=== PATIENT | male | born 1935 | race Caucasian/White ===

== ENCOUNTER 2016-06-21 04:01 | Emergency (ER) | payer MEDICARE, OTHER ==
[~2016-06-21] VITALS: Ht 182.9 cm; Wt 100.0 kg
[~2016-06-21 04:01] MED LIST: ASPI81 PO; LEVA500T PO; LISI-363 PO; METO25CR PO; PRED50 PO; RIVA20 PO; TIOT18I INH
[2016-06-21 04:03] VITALS: BP 182/89; PULSE 103; RESP 18; TEMP 98.8; O2SAT 96
[2016-06-21 04:49] LABS: AUTOMATED NEUTROPHIL # 4.6 TH/MM3 (1.8-7.7); BASOPHIL % 0.5 % (0.0-2.0); EOSINOPHIL # 0.6 TH/MM3 (0-0.4); EOSINOPHIL % 7.9 % (0.0-4.0); HEMATOCRIT 42.6 % (39.0-51.0); HEMO FLAGS DIFF FINAL; LYMPH % 24.3 % (9.0-44.0); LYMPHOCYTE # 1.9 TH/MM3 (1.0-4.8); MEAN CELL VOLUME 94.8 FL (80.0-100.0); MEAN CORPUSCULAR HGB CONC 33.7 % (32.0-36.0); MONO % 9.2 % (0.0-8.0); NEUT % 58.1 % (16.0-70.0); PLATELET COUNT 184 TH/MM3 (150-450); RED BLOOD COUNT 4.49 MIL/MM3 (4.50-5.90); RED CELL DISTRIBUTION WIDTH 13.5 % (11.6-17.2); WHITE BLOOD COUNT 7.9 TH/MM3 (4.0-11.0)
--- NOTE | 2016-06-21 05:15 | PD ---
HPI Chief Complaint: Bleeding Time Seen by Provider: 04:27 Travel History International Travel<30 days: No Contact w/Intl Traveler<30days: No Traveled to known affect area: No History of Present Illness HPI This is a 80-year-old gentleman whose had previous varicose vein ablations 2 years ago, who presents today after one of his ablated varicose veins started bleeding tonight. He reports that it was bleeding heavily and is unable to stop the bleeding. When [facility] arrived, they found that the bleeding had stopped. He states that he had one on the other foot the did the same thing. He denies any fevers, chills. He states the procedure was done at [facility]. PFSH Past Medical History Hx Anticoagulant Therapy: Yes (XARELTO) Arthritis: Yes (Never been diagnosed) Asthma: No Atrial Fibrillation: Yes Autoimmune Disease: No Blood Disorders: No Anxiety: No Depression: No Heart Rhythm Problems: Yes Cancer: No Cardiac Catheterization: Yes (2011) Cardiovascular Problems: Yes High Cholesterol: Yes Chemotherapy: No Chest Pain: No Congestive Heart Failure: No COPD: Yes Cerebrovascular Accident: No Coronary Artery Disease: Yes (A fib with ablasion) Diabetes: No Endocrine: No Gastrointestinal Disorders: No GERD: No Glaucoma: No Genitourinary: No Hepatitis: No Hiatal Hernia: No Hypertension: Yes Immune Disorder: No Kidney Stones: No Musculoskeletal: Yes (BACK PROBLEM) Neurologic: No Psychiatric: No Reproductive: No Respiratory: Yes Migraines: Yes (Flashing in front of eyes q6 months, prior phenobarbital use) Myocardial Infarction: Yes Radiation Therapy: No Renal Failure: No Seizures: No Sickle Cell Disease: No Sleep Apnea: Yes Thyroid Disease: No Ulcer: No Tetanus Vaccination: Unknown Influenza Vaccination: Yes Past Surgical History Abdominal Surgery: Yes (Gall bladder, appendix - both removed) AICD: No Appendectomy: Yes Arteriovenous Shunt: No Cardiac Surgery: Yes (2 ablations) Cholecystectomy: Yes Ear Surgery: No Endocrine Surgery: No Eye Surgery: Yes (cataracts, both eyes) Genitourinary Surgery: No Gynecologic Surgery: No Insulin Pump: No Joint Replacement: No Oral Surgery: No Pacemaker: No Thoracic Surgery: No Tonsillectomy: Yes Other Surgery: Yes Social History Alcohol Use: Yes (OCC) Tobacco Use: No Substance Use: No Allergies-Medications (Allergen,Severity, Reaction): Coded Allergies: Amiodarone (Verified Allergy, Severe, PALPITATIONS,SOB, 06/21/16) Iodine (Verified Allergy, Severe, SOB, 06/21/16) Shellfish (Verified Allergy, Severe, SOB, 06/21/16) Reported Meds & Prescriptions Reported Meds & Active Scripts Active Deltasone 50 Mg Tab (Prednisone) 50 Mg Tab 50 Mg PO DAILY 5 Days see written script- tapering dose Levaquin 500 Mg Tab (Levofloxacin) 500 Mg Tab 500 Mg PO Q24H Spiriva 18 Mcg Oral Inh (Tiotropium [place]) 18 Mcg Inhp 18 Mcg INH DAILY Reported Metoprolol Succinate ER 25 mg (Metoprolol Succinate) 25 Mg Tab 25 Mg PO DAILY Xarelto 20 Mg Tab (Rivaroxaban) 20 Mg Tab 20 Mg PO DAILY Lisinopril 20 mg (Lisinopril) 20 Mg Tab 1 Tab PO DAILY Aspirin 81 Mg Tab 81 Mg PO DAILY Review of Systems Except as stated in HPI: all other systems reviewed are Neg Musculoskeletal: Positive: Other (bleeding from varicose veins on the left melchor ) Skin: Positive Other (bleeding from varicose vein of the left melchor.) Physical Exam Narrative GENERAL: Well-nourished, well-developed patient. SKIN: Warm and dry. HEAD: Normocephalic/atraumatic. MUSCULOSKELETAL: No cyanosis, or edema. On examination patient's left leg, there was a pressure dressing that the paramedics had placed. There was no active bleeding noted. There was a small eschar from the area that was bleeding that was intact. Data Data Last Documented VS Vital Signs Date Time Temp Pulse Resp B/P Pulse Ox O2 Delivery O2 Flow Rate FiO2 06/21/16 04:03 98.8 103 18 182/89 96 Orders Complete Blood Count With Diff (06/21/16 04:27) Labs Laboratory Tests Test 06/21/16 04:40 White Blood Count 7.9 TH/MM3 Red Blood Count 4.49 MIL/MM3 Hemoglobin 14.3 GM/DL Hematocrit 42.6 % Mean Corpuscular Volume 94.8 FL Mean Corpuscular Hemoglobin 32.0 PG Mean Corpuscular Hemoglobin 33.7 % Concent Red Cell Distribution Width 13.5 % Platelet Count 184 TH/MM3 Mean Platelet Volume 9.1 FL Neutrophils (%) (Auto) 58.1 % Lymphocytes (%) (Auto) 24.3 % Monocytes (%) (Auto) 9.2 % Eosinophils (%) (Auto) 7.9 % Basophils (%) (Auto) 0.5 % Neutrophils # (Auto) 4.6 TH/MM3 Lymphocytes # (Auto) 1.9 TH/MM3 Monocytes # (Auto) 0.7 TH/MM3 Eosinophils # (Auto) 0.6 TH/MM3 Basophils # (Auto) 0.0 TH/MM3 CBC Comment DIFF FINAL Differential Comment MDM Medical Decision Making Medical Screen Exam Complete: Yes Emergency Medical Condition: Yes Differential Diagnosis Uncontrolled varicose vein bleeding versus arterial bleeding versus skin lesion Narrative Course 80-year-old gentleman who presents via [facility] after he had a episode of bleeding from an old varicose vein ablation site. By the time he arrived, the pain was not actively bleeding. He states he had a similar episode on his right lower extremity. His hemoglobin is within normal limits. There is no active bleeding. The site was cleaned and had a fresh mild pressure dressing placed. I've informed him that at this point there is nothing that we need to do. He asked about cautery and I stated that it was not indicated at this time. He is instructed to follow up with the vascular clinic that originally did his venous ablation. Diagnosis Primary Impression: left lower extremity varicose vein bleeding, resolved. Additional Instructions: Keep mild pressure on area for 2 days. Follow up with venous vascular clinic within 1-2 weeks. Disposition: 01 DISCHARGE HOME Condition: Stable Germain Ambriz MD Jun 21, 2016 05:15
== END 2016-06-21 06:10 | disposition home or self-care (01) ==
LOC: NEPE 04:01
DX: I83.892 Varicose veins of left lower extremity with other complications (principal); I48.91 Unspecified atrial fibrillation; E78.00 Pure hypercholesterolemia, unspecified; I10 Essential (primary) hypertension; Z79.01 Long term (current) use of anticoagulants
CPT/HCPCS: 85025; 99283

== ENCOUNTER 2016-12-17 04:51 | Inpatient (IN) | payer OTHER, MEDICARE ==
[2016-12-17] VITALS (11 sets, daily range): BP systolic 115–189; BP diastolic 59–105; PULSE 59–82; RESP 16–28; TEMP 98.5–99.3; O2SAT 94–100
[~2016-12-17] VITALS: Ht 185.4 cm; Wt 100.0 kg
[2016-12-17] MEDS ORDERED: SODIUM CHLORIDE 0.9% FLUSH 10 ML FLUSH IVF PRN (05:00)
--- NOTE | 2016-12-17 05:02 | PD ---
HPI Chief Complaint: Respiratory Distress Time Seen by Provider: 04:58 Travel History International Travel<30 days: No Contact w/Intl Traveler<30days: No Traveled to known affect area: No History of Present Illness HPI Patient is an 81-year-old male presents emergency department via EMS for evaluation of shortness of breath. Patient states he has a history of COPD and awoke with shortness of breath morning but has been short of breath for the past few days. He is also noticed some leg edema over the past few days. Has a history of an ablation by Dr. Spear but he's never had diagnosed congestive heart failure. He states he had an echocardiogram several months ago was negative. EMS gave the patient breathing treatment and placed on BiPAP after the discovered some basilar rales his decreased breath sounds which. After the breathing treatment. He was also noted to be hypertensive in the field and was given a nitroglycerin prior to initiating BiPAP. Patient denies any fevers cough congestion. Denies any chest pain. PFSH Past Medical History Hx Anticoagulant Therapy: Yes (XARELTO) Arthritis: Yes (Never been diagnosed) Asthma: No Atrial Fibrillation: Yes Autoimmune Disease: No Blood Disorders: No Anxiety: No Depression: No Heart Rhythm Problems: Yes Cancer: No Cardiac Catheterization: Yes (2011) Cardiovascular Problems: Yes High Cholesterol: Yes Chemotherapy: No Chest Pain: No Congestive Heart Failure: No COPD: Yes Cerebrovascular Accident: No Coronary Artery Disease: Yes (A fib with ablasion) Diabetes: No Endocrine: No Gastrointestinal Disorders: No GERD: No Glaucoma: No Genitourinary: No Hepatitis: No Hiatal Hernia: No Hypertension: Yes Immune Disorder: No Kidney Stones: No Musculoskeletal: Yes (BACK PROBLEM) Neurologic: No Psychiatric: No Reproductive: No Respiratory: Yes Migraines: Yes (Flashing in front of eyes q6 months, prior phenobarbital use) Myocardial Infarction: Yes Radiation Therapy: No Renal Failure: No Seizures: No Sickle Cell Disease: No Sleep Apnea: Yes Thyroid Disease: No Ulcer: No Past Surgical History Abdominal Surgery: Yes (Gall bladder, appendix - both removed) AICD: No Appendectomy: Yes Arteriovenous Shunt: No Cardiac Surgery: Yes (2 ablations) Cholecystectomy: Yes Ear Surgery: No Endocrine Surgery: No Eye Surgery: Yes (cataracts, both eyes) Genitourinary Surgery: No Gynecologic Surgery: No Insulin Pump: No Joint Replacement: No Oral Surgery: No Pacemaker: No Thoracic Surgery: No Tonsillectomy: Yes Other Surgery: Yes Social History Alcohol Use: Yes (OCC) Tobacco Use: No Substance Use: No Allergies-Medications (Allergen,Severity, Reaction): Coded Allergies: Amiodarone (Verified Allergy, Severe, PALPITATIONS,SOB, 06/21/16) Iodine (Verified Allergy, Severe, SOB, 06/21/16) Shellfish (Verified Allergy, Severe, SOB, 06/21/16) Reported Meds & Prescriptions Reported Meds & Active Scripts Active Reported Rosuvastatin (Rosuvastatin Calcium) 20 Mg Tab 20 Mg PO DAILY Spiriva Handihaler (Tiotropium Inh) 18 Mcg Cap 18 Mcg INH DAILY 1 capsule = 18 mcg Xarelto (Rivaroxaban) 20 Mg Tab 20 Mg PO DAILY Metoprolol Succinate ER 24 HR (Metoprolol Succinate) 25 Mg Tab 25 Mg PO DAILY Lisinopril 20 Mg Tab 20 Mg PO DAILY Aspirin Low Dose (Aspirin) 81 Mg Chew 81 Mg CHEW DAILY Review of Systems Except as stated in HPI: all other systems reviewed are Neg Physical Exam Narrative GENERAL: Well-developed well-nourished in no obvious distress, on CPAP transferred over to BiPAP SKIN: Focused skin assessment warm/dry. HEAD: Atraumatic. Normocephalic. EYES: Pupils equal and round. No scleral icterus. No injection or drainage. ENT: No nasal bleeding or discharge. Mucous membranes pink and moist. NECK: Trachea midline. Mild JVD, patient has some soft tissue neck mass on the right just at the point where the neck meets the shoulder. CARDIOVASCULAR: Regular rate and rhythm. No murmur appreciated. RESPIRATORY: No accessory muscle use. Decreased breath sounds, basilar faint rales. Breath sounds equal bilaterally. No increased work of breathing. GASTROINTESTINAL: Abdomen soft, non-tender, nondistended. Hepatic and splenic margins not palpable. MUSCULOSKELETAL: No obvious deformities. No clubbing. No cyanosis. No edema. NEUROLOGICAL: Awake and alert. No obvious cranial nerve deficits. Motor grossly within normal limits. Normal speech. PSYCHIATRIC: Appropriate mood and affect; insight and judgment normal. Data Data Last Documented VS Vital Signs Date Time Temp Pulse Resp B/P Pulse Ox O2 Delivery O2 Flow Rate FiO2 12/17/16 07:35 98 Nasal Cannula 2.00 12/17/16 07:30 61 16 151/67 12/17/16 06:13 30 12/17/16 04:54 99.3 Orders Electrocardiogram (12/17/16 04:58) B-Type Natriuretic Peptide (12/17/16 04:58) Ckmb (Isoenzyme) Profile (12/17/16 04:58) Complete Blood Count With Diff (12/17/16 04:58) Comprehensive Metabolic Panel (12/17/16 04:58) Magnesium (Mg) (12/17/16 04:58) Prothrombin Time / Inr (Pt) (12/17/16 04:58) Act Partial Throm Time (Ptt) (12/17/16 04:58) Troponin I (12/17/16 04:58) Chest, Single Ap (12/17/16 04:58) Ecg Monitoring (12/17/16 04:58) Iv Access Insert/Monitor (12/17/16 04:58) Oximetry (12/17/16 04:58) Oxygen Administration (12/17/16 04:58) Sodium Chloride 0.9% Flush (Ns Flush) (12/17/16 05:00) Albuterol-Ipratropium Neb (Duoneb Neb) (12/17/16 05:15) Furosemide Inj (Lasix Inj) (12/17/16 05:45) CKMB (12/17/16 05:05) CKMB% (12/17/16 05:05) Azithromycin Inj (Zithromax Inj) (12/17/16 07:15) Ceftriaxone Inj (Rocephin Inj) (12/17/16 07:15) Admit Order (Ed Use Only) (12/17/16 ) Labs Laboratory Tests Test 12/17/16 05:05 White Blood Count 12.9 TH/MM3 Red Blood Count 4.18 MIL/MM3 Hemoglobin 13.1 GM/DL Hematocrit 39.0 % Mean Corpuscular Volume 93.3 FL Mean Corpuscular Hemoglobin 31.3 PG Mean Corpuscular Hemoglobin 33.6 % Concent Red Cell Distribution Width 13.6 % Platelet Count 199 TH/MM3 Mean Platelet Volume 10.1 FL Neutrophils (%) (Auto) 79.9 % Lymphocytes (%) (Auto) 10.9 % Monocytes (%) (Auto) 5.2 % Eosinophils (%) (Auto) 3.3 % Basophils (%) (Auto) 0.7 % Neutrophils # (Auto) 10.3 TH/MM3 Lymphocytes # (Auto) 1.4 TH/MM3 Monocytes # (Auto) 0.7 TH/MM3 Eosinophils # (Auto) 0.4 TH/MM3 Basophils # (Auto) 0.1 TH/MM3 CBC Comment AUTO DIFF Differential Comment AUTO DIFF CONFIRMED Prothrombin Time 17.7 SEC Prothromb Time International 1.6 RATIO Ratio Activated Partial 39.5 SEC Thromboplast Time Sodium Level 140 MEQ/L Potassium Level 4.7 MEQ/L Chloride Level 106 MEQ/L Carbon Dioxide Level 26.6 MEQ/L Anion Gap 7 MEQ/L Blood Urea Nitrogen 19 MG/DL Creatinine 1.23 MG/DL Estimat Glomerular Filtration 57 ML/MIN Rate Random Glucose 111 MG/DL Calcium Level 8.8 MG/DL Magnesium Level 2.0 MG/DL Total Bilirubin 0.7 MG/DL Aspartate Amino Transf 16 U/L (AST/SGOT) Alanine Aminotransferase 22 U/L (ALT/SGPT) Alkaline Phosphatase 74 U/L Total Creatine Kinase 129 U/L Creatine Kinase MB 1.5 NG/ML Troponin I 0.08 NG/ML B-Type Natriuretic Peptide 81 PG/ML Total Protein 7.0 GM/DL Albumin 3.5 GM/DL [facility] Medical Decision Making Medical Screen Exam Complete: Yes Emergency Medical Condition: Yes Interpretation(s) EKG shows sinus rhythm with normal axis normal R-wave progression. No concerning ST segment changes. Intervals within normal limits. This is a normal EKG. Differential Diagnosis CHF, ACS, AMI, COPD exacerbation, pneumonia. Narrative Course Last 24 hours Impressions Chest X-Ray 12/17/16 0458 Signed Impressions: Service Date/Time: Saturday, December 17, 2016 04:56 - CONCLUSION: Mild bilateral lower lung infiltrates, possibly chronic. No focal areas of consolidation. Franklyn Shin MD Patient roomed in emergency department, the etiology of his shortness of breath is not 100% clear. His initial saturation in the field was 190%. Doing well after being weaned off her BiPAP on nasal cannula. Troponin is mildly elevated at 0.08, his EKG was nonischemic. BNP is negative. Chest x-ray above somewhat suggest an infectious etiology however he does have symptomology to support it. We'll start him on some antibiotics she was given some Lasix and recommended admission to the hospital with her workup and he is agreeable. Diagnosis Primary Impression: SOB (shortness of breath) Additional Impression: CHF (congestive heart failure) Admitting Information Admitting Physician Requests: Observation Condition: Stable Hair Singh MD Dec 17, 2016 05:02
[2016-12-17] MEDS ORDERED: XARE20TA PO (05:11)
[2016-12-17] MEDS ORDERED: LISI-515 PO (05:11)
[2016-12-17] MEDS ORDERED: ROSU1TAB8 PO (05:11)
[2016-12-17] MEDS ORDERED: SPIRCAP INH (05:11)
[2016-12-17] MEDS ORDERED: ASPI81CH37 CHEW (05:11)
[2016-12-17] MEDS ORDERED: METO25TA6 PO (05:11)
[2016-12-17] MEDS ORDERED: RESP: ALBUTEROL 2.5 MG/IPRATROPIUM 0.5 MG NEB (SCH) NEB ONE (05:15)
--- NOTE | 2016-12-17 05:17 | RADRPT ---
EXAM DATE/TIME: 12/17/2016 04:56 [facility] COMPARISON: CHEST SINGLE AP, December 19, 2014, 5:08. INDICATIONS : Short of breath. MEDICAL HISTORY : Chronic obstructive pulmonary disease. SURGICAL HISTORY : None. ENCOUNTER: Initial ACUITY: 1 day PAIN SCORE: 0/10 LOCATION: Bilateral chest FINDINGS: There are mild airspace opacities in the mid and lower lungs bilaterally, right greater than left, wi thout consolidation, similar appearance to a prior chest x-ray in 2014. The heart is normal size. B oth hemidiaphragms are fairly well delineated. CONCLUSION: Mild bilateral lower lung infiltrates, possibly chronic. No focal areas of consolidation. Franklyn Shin MD on December 17, 2016 at 5:14 Board Certified Radiologist. This report was verified electronically.
[2016-12-17 05:35] LABS: ALT (GPT) 22 U/L (12-78); ANION GAP 7 MEQ/L (5-15); AST (GOT) 16 U/L (15-37); BICARBONATE 26.6 MEQ/L (21.0-32.0); BLOOD UREA NITROGEN 19 MG/DL (7-18); CHLORIDE 106 MEQ/L (98-107); GLOMERULAR FILTRATION RATE 57 ML/MIN (>89); POTASSIUM 4.7 MEQ/L (3.5-5.1); SODIUM (NA) 140 MEQ/L (136-145)
[2016-12-17 05:40] LABS: ALKALINE PHOSPHATASE 74 U/L (45-117); AUTOMATED NEUTROPHIL # 10.3 TH/MM3 (1.8-7.7); BASOPHIL # 0.1 TH/MM3 (0-0.2); BASOPHIL % 0.7 % (0.0-2.0); CREATINE KINASE 129 U/L (39-308); EOSINOPHIL # 0.4 TH/MM3 (0-0.4); EOSINOPHIL % 3.3 % (0.0-4.0); LYMPH % 10.9 % (9.0-44.0); LYMPHOCYTE # 1.4 TH/MM3 (1.0-4.8); MEAN CELL VOLUME 93.3 FL (80.0-100.0); MEAN CORPUSCULAR HEMOGLOBIN 31.3 PG (27.0-34.0); MEAN CORPUSCULAR HGB CONC 33.6 % (32.0-36.0); MONO % 5.2 % (0.0-8.0); NEUT % 79.9 % (16.0-70.0); PLATELET COUNT 199 TH/MM3 (150-450); RED BLOOD COUNT 4.18 MIL/MM3 (4.50-5.90); RED CELL DISTRIBUTION WIDTH 13.6 % (11.6-17.2); TOTAL BILIRUBIN ADULT 0.7 MG/DL (0.2-1.0); WHITE BLOOD COUNT 12.9 TH/MM3 (4.0-11.0)
[2016-12-17 05:41] LABS: APTT (PATIENT) 39.5 SEC (24.3-30.1); INTERNATIONAL NORMALIZED RATIO 1.6 RATIO; PROTHROMBIN TIME - PATIENT 17.7 SEC (9.8-11.6)
[2016-12-17 05:45] LABS: HEMO FLAGS AUTO DIFF
[2016-12-17] MEDS ORDERED: FUROSEMIDE 40 MG/4 ML VIAL IV PUSH ONE (05:45)
[2016-12-17 05:52] LABS: CKMB 1.5 NG/ML (0.5-3.6)
[2016-12-17 06:08] LABS: SCAN/DIFF AUTO DIFF CONFIRMED
[2016-12-17] MEDS ORDERED: AZITHROMYCIN INJ 500 MG in SODIUM CHLOR 0.9% 250 ML INJ 250 ML IV ONE (07:15)
[2016-12-17] MEDS ORDERED: cefTRIAXone INJ 1,000 MG in SODIUM CHLORIDE 0.9% INJ 100 ML IV ONE (07:15)
[2016-12-17] MEDS ORDERED: ACETAMINOPHEN 325 MG TAB PO PRN (08:00)
[2016-12-17] MEDS ORDERED: MAGNESIUM HYDROXIDE SUSP 30 ML CUP PO PRN (08:00)
[2016-12-17] MEDS ORDERED: ONDANSETRON HCL 4 MG/2 ML VIAL IVP PRN (08:00)
[2016-12-17] MEDS ORDERED: HEPARIN SODIUM - SQ 10,000 UNITS/ML VIAL SQ SCH (08:00)
[2016-12-17] MEDS ORDERED: SODIUM CHLORIDE 0.9% FLUSH 10 ML FLUSH IV FLUSH PRN (08:00)
[2016-12-17] MEDS ORDERED: BISACODYL 10 MG SUPP RECTAL PRN (08:00)
[2016-12-17] MEDS ORDERED: LACTULOSE SYRUP 20 GM/30 ML CUP PO PRN (08:00)
[2016-12-17] MEDS ORDERED: SENNOSIDES 8.6 MG TAB PO PRN (08:00)
[2016-12-17] MEDS ORDERED: NALOXONE HCL 0.4 MG/ML AMP IV PRN (08:00)
[2016-12-17] MEDS: SODIUM CHLORIDE 0.9% FLUSH 10 ML FLUSH IV FLUSH SCH ×2 (09:51→21:00)
[2016-12-17] MEDS: DOCUSATE SODIUM 50 MG/SENNA 8.6 MG TAB PO SCH ×2 (09:51→21:00)
--- NOTE | 2016-12-17 14:11 | HHI.HP ---
HPI Service [facility] Primary Care Physician Unknown Admission Diagnosis CHF, PNA, Hypoxia. Diagnoses: Chief Complaint: shortness of breath Travel History International Travel<30 Days: No Contact w/Intl Traveler <30 Da: No Traveled to Known Affected Are: No Sepsis Criteria SIRS Criteria (2 or more): RR > 20 or PaCO2 < 32, WBC > 42598, < 4000 or > 10 % bands Sepsis Criteria (SIRS+source): Infect source susp/known Criteria Outcome: Meets sepsis criteria History of Present Illness Written by Trina Joaquin, acting as scribe for Dr. Liz on 12/17/16 at 14:24. This note was transcribed by scribe FRANCK Rodriguez. I, Dr. Karl Liz personally performed the history, physical exam, and medical decision making; and confirmed the accuracy of the information in the transcribed note. Authenticated by Dr. Karl Liz on 12/17/16 at 17:15. 81-year-old male with history of COPD, atrial fibrillation s/p ablation, on Xarelto, hypertension, hyperlipidemia, mild aortic stenosis, presents with a 3 day history of shortness of breath. He denies any cough or fevers/chills. He's noticed the shortness of breath worse at night with associated orthopnea. Dyspnea also worse with exertion, relieved by sitting upright in chair. He has noticed some mild edema around the ankles. He denies any chest pain or palpitations. He does complain of some back pain which is chronic for him. Denies any other medical complaints at this time including no abdominal pain, nausea/vomiting, diarrhea, constipation, or dysuria. His first calender worker is Dr. Spear. He believes it's been over a year since his last echocardiogram. Review of Systems Except as stated in HPI: all other systems reviewed are Neg Past Family Social History Past Medical History COPD atrial fibrillation s/p ablation x2, on Xarelto hypertension hyperlipidemia JUAN, intolerant to CPAP Diet controlled pre-diabetes Mild aortic stenosis Past Surgical History EP study with ablation 2 Appendectomy Tonsillectomy Cholecystectomy Back surgery Reported Medications Rosuvastatin (Rosuvastatin Calcium) 20 Mg Tab 20 Mg PO DAILY Spiriva Handihaler (Tiotropium Inh) 18 Mcg Cap 18 Mcg INH DAILY 1 capsule = 18 mcg Xarelto (Rivaroxaban) 20 Mg Tab 20 Mg PO DAILY Metoprolol Succinate ER 24 HR (Metoprolol Succinate) 25 Mg Tab 25 Mg PO DAILY Lisinopril 20 Mg Tab 20 Mg PO DAILY Aspirin Low Dose (Aspirin) 81 Mg Chew 81 Mg CHEW DAILY Allergies: Coded Allergies: Amiodarone (Verified Allergy, Severe, PALPITATIONS,SOB, 06/21/16) Iodine (Verified Allergy, Severe, SOB, 06/21/16) Shellfish (Verified Allergy, Severe, SOB, 06/21/16) Active Ordered Medications Current Medications Medications (Trade) Dose Ordered Sig/Daryl Route Start Time Stop Time Status Last Admin (NS Flush) 2 ml UNSCH PRN IV FLUSH 12/17/16 08:00 (NS Flush) 2 ml BID IV FLUSH 12/17/16 09:00 12/17/16 09:51 (Tylenol) 650 mg Q4H PRN PO 12/17/16 08:00 (Zofran Inj) 4 mg Q6H PRN IVP 12/17/16 08:00 (Heparin Inj) 5,000 units Q12H SQ 12/17/16 08:00 12/17/16 08:16 (Narcan Inj) 0.4 mg UNSCH PRN IV 12/17/16 08:00 (Zarina-Colace) 1 tab BID PO 12/17/16 09:00 12/17/16 09:51 (Milk Of Magnesia Liq) 30 ml Q12H PRN PO 12/17/16 08:00 (Senokot) 17.2 mg Q12H PRN PO 12/17/16 08:00 (Dulcolax Supp) 10 mg DAILY PRN RECTAL 12/17/16 08:00 (Lactulose Liq) 30 ml DAILY PRN PO 12/17/16 08:00 Family History Father with colon cancer age 61, then lived to age 91 Uncle with prostate cancer Cousin with unknown cancer Social History Prior tobacco use, quit in 1970 Occasional alcohol use, drinks mostly beer 1-2 daily Denies any illicit drug use Works at [employer] Physical Exam Vital Signs Vital Signs Date Time Temp Pulse Resp B/P Pulse Ox O2 Delivery O2 Flow Rate FiO2 12/17/16 11:06 98.5 64 16 148/70 99 12/17/16 07:35 98 Nasal Cannula 2.00 12/17/16 07:30 61 16 151/67 98 Room Air 12/17/16 07:30 61 18 151/67 98 Nasal Cannula 2 12/17/16 06:37 96 Nasal Cannula 2.00 12/17/16 06:13 59 18 115/59 99 BiPAP 11 30 12/17/16 05:06 99 BiPAP 11 30 12/17/16 04:58 99 30 12/17/16 04:54 99.3 79 28 189/105 99 Physical Exam GENERAL: Well-nourished, well-developed pleasant elderly male patient in NAD. SKIN: Warm and dry. HEAD: Normocephalic. Atraumatic. EYES: Pupils equal and round. No scleral icterus. No injection or drainage. ENT: No nasal bleeding or discharge. Mucous membranes pink and moist. NECK: Supple. Trachea midline. CARDIOVASCULAR: Regular rate and rhythm. S1, S2 noted. No murmur appreciated. RESPIRATORY: No accessory muscle use. Clear to auscultation. Breath sounds equal bilaterally. GASTROINTESTINAL: Abdomen soft, non-tender, nondistended. Normoactive bowel sounds x4. MUSCULOSKELETAL: No obvious deformities. Trace b/l lower extremity edema. NEUROLOGICAL: Awake and alert. No obvious cranial nerve deficits. Motor grossly within normal limits. Normal speech. PSYCHIATRIC: Appropriate mood and affect; insight and judgment normal. Laboratory Laboratory Tests Test 12/17/16 05:05 White Blood Count 12.9 Red Blood Count 4.18 Hemoglobin 13.1 Hematocrit 39.0 Mean Corpuscular Volume 93.3 Mean Corpuscular Hemoglobin 31.3 Mean Corpuscular Hemoglobin 33.6 Concent Red Cell Distribution Width 13.6 Platelet Count 199 Mean Platelet Volume 10.1 Neutrophils (%) (Auto) 79.9 Lymphocytes (%) (Auto) 10.9 Monocytes (%) (Auto) 5.2 Eosinophils (%) (Auto) 3.3 Basophils (%) (Auto) 0.7 Neutrophils # (Auto) 10.3 Lymphocytes # (Auto) 1.4 Monocytes # (Auto) 0.7 Eosinophils # (Auto) 0.4 Basophils # (Auto) 0.1 CBC Comment AUTO DIFF Differential Comment AUTO DIFF CONFIRMED Prothrombin Time 17.7 Prothromb Time International 1.6 Ratio Activated Partial 39.5 Thromboplast Time Sodium Level 140 Potassium Level 4.7 Chloride Level 106 Carbon Dioxide Level 26.6 Anion Gap 7 Blood Urea Nitrogen 19 Creatinine 1.23 Estimat Glomerular Filtration 57 Rate Random Glucose 111 Calcium Level 8.8 Magnesium Level 2.0 Total Bilirubin 0.7 Aspartate Amino Transf 16 (AST/SGOT) Alanine Aminotransferase 22 (ALT/SGPT) Alkaline Phosphatase 74 Total Creatine Kinase 129 Creatine Kinase MB 1.5 Troponin I 0.08 B-Type Natriuretic Peptide 81 Total Protein 7.0 Albumin 3.5 Result Diagram: 12/17/16 0505 12/17/16 0505 Imaging Last Impressions Chest X-Ray 12/17/16 0458 Signed Impressions: Service Date/Time: Saturday, December 17, 2016 04:56 - CONCLUSION: Mild bilateral lower lung infiltrates, possibly chronic. No focal areas of consolidation. Franklyn Shin MD Assessment and Plan Problem List: (1) SOB (shortness of breath) ICD Code: R06.02 Status: Acute (2) Pneumonia ICD Code: J18.9 Status: Acute (3) Acute exacerbation of CHF (congestive heart failure) ICD Code: I50.9 Status: Acute Assessment and Plan 81-year-old male with history of COPD, atrial fibrillation s/p ablation, on Xarelto, hypertension, hyperlipidemia, presents with a 2-3 day history of shortness of breath. Dyspnea, Acute Respiratory Distress: unclear etiology, possibly multifactorial with developing pneumonia and mild acute CHF exacerbation. RR 28 upon arrival, s /p Bipap, duonebs, and IV Lasix 40mg x1. CXR images reviewed, shows mild bilateral lower lung infiltrates, possibly chronic, no focal areas of consolidation. BNP 81. Doubt PE while on Xarelto. -continue diuresis for possible CHF exacerbation -continue antibiotics for pneumonia -duonebs prn -incentive spirometry -continue O2 as needed Possible CHF Exacerbation: Prior Echo 12/20/14 with mild LVH, vigorous systolic function EF 65-70%, mild , mild MR, mild TR; however Echo 06/17/12 with EF 30- 35%. -check repeat echocardiogram -continue diuresis with torsemide 10mg bid -monitor Is&Os -fluid/sodium restrictions Sepsis with Community Acquired Pneumonia: CXR with bilateral lower lung infiltrates. Meets sepsis criteria with leukocytosis WBC 12.9K and tachypnea RR 28, with source pneumonia. -Continue antibiotics with IV Levaquin -monitor CBC Elevated Troponin: no complaints of chest pain. Troponin 0.08. EKG with no acute ischemic changes. Possibly related to renal insufficiency. -Continue to rule out ACS with serial cardiac enzymes/EKGs. -Monitor on telemetry. -Continue patient's aspirin, statin, BB, ACEi Hypertension/Hyperlipidemia: chronic -continue patient's metoprolol, lisinopril, and statin Atrial Fibrillation: EKG with sinus rhythm -continue patient's BB and Xarelto -monitor on telemetry DVT Prophylaxis: on Xarelto Discussed Condition With Patient, ER Trina Zafar PA-C Dec 17, 2016 14:11 Cristina Liz DO Dec 17, 2016 17:16
[2016-12-17] MEDS ORDERED: RESP: ALBUTEROL 2.5 MG/IPRATROPIUM 0.5 MG NEB (PRN) NEB (15:30)
[2016-12-17 15:55] LABS: CREATINE KINASE 106 U/L (39-308)
[2016-12-17 16:08] LABS: CKMB 1.2 NG/ML (0.5-3.6)
--- NOTE | 2016-12-17 16:54 | EKG ---
Date Performed: 12/17/2016 Time Performed: 05:03:24 PTAGE: 81 years EKG: Sinus rhythm NORMAL ECG PREVIOUS TRACING : 12/19/2014 05.02 Compared to prior tracing no significant change DOCTOR: Julio Cesar Ac Interpretating Date/Time 12/17/2016 16:52:39
[2016-12-17] MEDS: TORSEMIDE 5 MG TAB PO SCH (18:35)
--- NOTE | 2016-12-17 19:27 | ECHRPT ---
Indication: Shortness of breath CONCLUSIONS Mild concentric left ventricular hypertrophy. The left ventricular systolic function is normal with an estimated ejection fraction in the range of 60-65%. No regional wall motion abnormalities are present. Mild mitral annular calcification. Moderate thickening of the aortic valve leaflets. Trace aortic valve regurgitation. Mild aortic valve stenosis. There is trace tricuspid valve regurgitation. The estimated pulmonary arterial pressure is 25 mmHg. BP: 148 / 70 HR: 64 Rhythm: Sinus MEASUREMENTS (Male / Female) Normal Values Technical Quality:Fair 2D ECHO LV Diastolic Diameter PLAX 5.1 cm 4.2 - 5.9 / 3.9 - 5.3 cm LV Systolic Diameter PLAX 3.4 cm IVS Diastolic Thickness 1.3 cm 0.6 - 1.0 / 0.6 - 0.9 cm LVPW Diastolic Thickness 1.3 cm 0.6 - 1.0 / 0.6 - 0.9 cm LV Relative Wall Thickness 0.5 RV Internal Dim ED PLAX 2.6 cm LVOT Diameter 2.0 cm M-MODE Aortic Root Diameter MM 3.3 cm AV Cusp Separation MM 1.0 cm DOPPLER AV Peak Velocity 288.0 cm/s AV Peak Gradient 33.2 mmHg AV Mean Gradient 18.0 mmHg AV Velocity Time Integral 61.8 cm LVOT Peak Velocity 118.0 cm/s LVOT Peak Gradient 5.6 mmHg LVOT Velocity Time Integral 25.6 cm LVOT Cardiac Index 2251.1 cm/minm AV Area Cont Eq vti 1.3 cm AV Area Cont Eq pk 1.3 cm MV Area PHT 3.5 cm Mitral E Point Velocity 99.7 cm/s LV E' Lateral Velocity 8.3 cm/s Mitral E to LV E' Lateral Ratio 12.0 LV E' Septal Velocity 5.9 cm/s Mitral E to LV E' Septal Ratio 17.0 TV Peak Velocity 252.0 cm/s PV Peak Velocity 130.0 cm/s PV Peak Gradient 6.8 mmHg FINDINGS LEFT VENTRICLE Mild concentric left ventricular hypertrophy. No regional wall motion abnormalities are present. RIGHT VENTRICLE Normal right ventricular size and systolic function. LEFT ATRIUM The left atrial size is normal. RIGHT ATRIUM The right atrial size is normal. ATRIAL SEPTUM Normal atrial septal thickness without atrial level shunting by limited color doppler interrogation. AORTA The aortic root and proximal ascending aorta are normal in size on limited imaging. MITRAL VALVE Mild mitral annular calcification. No mitral valve regurgitation. AORTIC VALVE Moderate thickening of the aortic valve leaflets. Trace aortic valve regurgitation. Mild aortic valve stenosis. TRICUSPID VALVE There is trace tricuspid valve regurgitation. The estimated pulmonary arterial pressure is 25 mmHg. PULMONARY VALVE The pulmonary valve is not well visualized. VESSELS The inferior vena cava is normal in size. PERICARDIUM No pericardial effusion. Radha Milton MD, FACC (Electronically Signed) Final Date:17 December 2016 19:27
[2016-12-17 22:04] LABS: CREATINE KINASE 111 U/L (39-308)
[2016-12-17 22:17] LABS: CKMB 0.6 NG/ML (0.5-3.6)
[2016-12-18] VITALS (8 sets, daily range): BP systolic 117–152; BP diastolic 55–66; PULSE 53–101; RESP 16–18; TEMP 98.1–98.8; O2SAT 94–97
--- NOTE | 2016-12-18 05:06 | EKG ---
Date Performed: 12/17/2016 Time Performed: 21:02:33 PTAGE: 81 years EKG: Sinus rhythm possible SEPTAL MYOCARDIAL INFARCTION ABNORMAL ECG Compared to the PREVIOUS TRACING Possible septal AL is present but this could be due to lead placement john hanks. PREVIOUS TRACIN12/17/2016 05.03 DOCTOR: Alxe Max Interpretating Date/Time 12/18/2016 05:04:25
[2016-12-18] MEDS: TORSEMIDE 5 MG TAB PO SCH ×2 (09:31→18:28)
[2016-12-18] MEDS: ASPIRIN 81 MG CHEW TAB CHEW SCH (09:31)
[2016-12-18] MEDS: DOCUSATE SODIUM 50 MG/SENNA 8.6 MG TAB PO SCH ×2 (09:31→20:00)
[2016-12-18] MEDS: ATORVASTATIN 40 MG TAB PO SCH (09:31)
[2016-12-18] MEDS: RIVAROXABAN 20 MG TAB PO SCH (09:31)
[2016-12-18] MEDS: LISINOPRIL 20 MG TAB PO SCH (09:31)
[2016-12-18] MEDS: METOPROLOL SUCCINATE 25 MG EXTENDED RELEASE TAB PO SCH (09:31)
[2016-12-18] MEDS: SODIUM CHLORIDE 0.9% FLUSH 10 ML FLUSH IV FLUSH SCH ×2 (09:32→20:00)
[2016-12-18] MEDS: LEVOFLOXACIN 750 MG PREMIX INJ 150 ML IV SCH (09:32)
--- NOTE | 2016-12-18 10:30 | HHI.PR ---
Subjective Remarks Follow up for dyspnea, pneumonia. The patient reports feeling better today. He states last night he had an episode after lying down where he felt short of breath, unable to take a deep breath, and he believes he had some wheezing at that time. He was given a duoneb treatment and used incentive spirometer, and the symptoms resolved shortly after. He continues to deny any chest pain or palpitations. He has minimal nonproductive cough. Denies fevers/chills. He is requiring 2L NC with O2 sat 97%. He does not wear oxygen at home. He has a nebulizer machine at home but his neb solution is over a few years old, requesting new prescription. He has no other medical complaints at this time. Discussed abnormal cardiac enzymes with the patient. Upon further discussion, he does endorse a tightness in his chest and dyspnea with minimal exertion, relieved by rest. He states it's been multiple years since he's had any stress test. He's never had stents or bypass. He agrees to nuclear stress test. Objective Vitals Vital Signs Date Time Temp Pulse Resp B/P Pulse Ox O2 Delivery O2 Flow Rate FiO2 12/18/16 07:44 98.5 84 16 152/66 97 12/18/16 07:16 86 12/18/16 04:45 98.8 67 18 133/66 97 12/18/16 00:05 98.7 74 18 121/58 97 12/17/16 22:00 74 12/17/16 21:37 94 Nasal Cannula 2.00 12/17/16 19:56 98.6 82 18 141/66 100 12/17/16 17:33 99.1 68 16 135/64 98 12/17/16 11:06 98.5 64 16 148/70 99 I/O 12/17/16 12/17/16 12/17/16 12/18/16 12/18/16 12/18/16 06:59 14:59 22:59 06:59 14:59 22:59 Intake Total 460 ml 480 ml Output Total 750 ml 600 ml Balance -750 ml 460 ml -120 ml Intake Oral 460 ml 480 ml Output Urine Total 750 ml 600 ml # Voids 3 2 # Bowel Movements 0 Result Diagram: 12/17/16 0505 12/17/16 0506 Imaging Last Impressions Chest X-Ray 12/17/16 3254 Signed Impressions: Service Date/Time: Saturday, December 17, 2016 04:56 - CONCLUSION: Mild bilateral lower lung infiltrates, possibly chronic. No focal areas of consolidation. Franklyn Shin MD Objective Remarks GENERAL: Well-nourished, well-developed pleasant elderly male patient in [facility]. SKIN: Warm and dry. No rash. HEENT: Normocephalic. Atraumatic. Pupils equal and round. Mucous membranes pink and moist. CARDIOVASCULAR: Regular rate and rhythm. S1, S2 noted. No murmur appreciated. RESPIRATORY: No accessory muscle use. Breath sounds slightly diminished at bilateral bases, otherwise clear to auscultation. Breath sounds equal bilaterally. GASTROINTESTINAL: Abdomen soft, non-tender, nondistended. Normoactive bowel sounds x4. MUSCULOSKELETAL: No obvious deformities. Very trace BLE edema around the ankles. Calves nontender/nonedematous. NEUROLOGICAL: Awake and alert. No obvious cranial nerve deficits. Motor grossly within normal limits. Normal speech. PSYCHIATRIC: Appropriate mood and affect; insight and judgment normal. Medications and IVs Current Medications Medications (Trade) Dose Ordered Sig/Daryl Route Start Time Stop Time Status Last Admin (NS Flush) 2 ml UNSCH PRN IV FLUSH 12/17/16 08:00 (NS Flush) 2 ml BID IV FLUSH 12/17/16 09:00 12/18/16 09:32 (Tylenol) 650 mg Q4H PRN PO 12/17/16 08:00 (Zofran Inj) 4 mg Q6H PRN IVP 12/17/16 08:00 (Narcan Inj) 0.4 mg UNSCH PRN IV 12/17/16 08:00 (Zarina-Colace) 1 tab BID PO 12/17/16 09:00 12/18/16 09:31 (Milk Of Magnesia Liq) 30 ml Q12H PRN PO 12/17/16 08:00 (Senokot) 17.2 mg Q12H PRN PO 12/17/16 08:00 (Dulcolax Supp) 10 mg DAILY PRN RECTAL 12/17/16 08:00 (Lactulose Liq) 30 ml DAILY PRN PO 12/17/16 08:00 (Aspirin Chew) 81 mg DAILY CHEW 12/18/16 09:00 8/15/17 09:31 (Prinivil) 20 mg DAILY PO 12/18/16 09:00 12/18/16 09:31 (Toprol Xl) 25 mg DAILY PO 12/18/16 09:00 12/18/16 09:31 (Xarelto) 20 mg DAILY PO 12/18/16 09:00 12/18/16 09:31 Atorvastatin Calcium 40 mg 40 mg DAILY PO 12/18/16 09:00 12/18/16 09:31 (Levaquin 750 Mg Premix Inj) 150 ml @ 100 mls/hr Q24H IV 12/18/16 09:00 12/18/16 09:32 (Demadex) 10 mg BID@09,18 PO 12/17/16 18:00 12/18/16 09:31 A/P Problem List: (1) SOB (shortness of breath) ICD Code: R06.02 Status: Acute (2) Pneumonia ICD Code: J18.9 Status: Acute (3) Acute exacerbation of CHF (congestive heart failure) ICD Code: I50.9 Status: Acute Assessment and Plan 81-year-old male with history of COPD, atrial fibrillation s/p ablation, on Xarelto, hypertension, hyperlipidemia, presents with a 2-3 day history of shortness of breath. Dyspnea, Acute Respiratory Distress: unclear etiology, possibly multifactorial with developing pneumonia and COPD exacerbation, rule out CHF. RR 28 upon arrival, s/p Bipap, duonebs, and IV Lasix 40mg x1. CXR images reviewed, shows mild bilateral lower lung infiltrates, possibly chronic, no focal areas of consolidation. BNP 81. Doubt PE while on Xarelto. -continue diuresis for possible CHF exacerbation -continue antibiotics for pneumonia -duonebs prn -incentive spirometry -continue O2 as needed -check home O2 walk test Sepsis with Community Acquired Pneumonia: CXR with bilateral lower lung infiltrates. Meets sepsis criteria with leukocytosis WBC 12.9K and tachypnea RR 28, with source pneumonia. -Continue antibiotics with IV Levaquin -monitor CBC, results pending COPD Exacerbation: mild, dyspnea relieved by duonebs, patient reports subjective wheezing overnight -start on prednisone 40mg daily -continue duonebs q8h and q4h prnPossible Mild CHF Exacerbation: Prior Echo with mild LVH, vigorous systolic function EF 65-70%, mild , mild MR, mild TR; however Echo 06/17/12 with EF 30-35%. -repeat echocardiogram 12/17 with normal systolic function EF 60-65% -continue diuresis with torsemide 10mg bid -monitor Is&Os -fluid/sodium restrictions Elevated Troponin: no complaints of chest pain. Troponin 0.08. EKG show NSR with no acute ischemic changes. Suspect related to renal insufficiency/CHF. -serial troponins flat, however 2nd EKG with possible septal myocardial infarction. -Monitor on telemetry. -Continue patient's aspirin, statin, BB, ACEi -check nuclear stress test tomorrow (unable to be done today due to patient having coffee) Hypertension/Hyperlipidemia: chronic -continue patient's metoprolol, lisinopril, and statin Atrial Fibrillation: EKG with sinus rhythm -continue patient's BB and Xarelto -monitor on telemetry DVT Prophylaxis: on Xarelto Discharge Planning Likely discharge tomorrow after nuclear stress test. Trina Joaquin PA-C Dec 18, 2016 10:30 am
[2016-12-18] MEDS: RESP: ALBUTEROL 2.5 MG/IPRATROPIUM 0.5 MG NEB (SCH) NEB ×2 (11:41→20:27)
[2016-12-18] MEDS: predniSONE 20 MG TAB PO SCH (12:10)
[2016-12-18 12:20] LABS: AUTOMATED NEUTROPHIL # 5.7 TH/MM3 (1.8-7.7); BASOPHIL % 0.4 % (0.0-2.0); EOSINOPHIL # 0.5 TH/MM3 (0-0.4); EOSINOPHIL % 5.4 % (0.0-4.0); HEMATOCRIT 36.9 % (39.0-51.0); HEMO FLAGS DIFF FINAL; LYMPHOCYTE # 1.7 TH/MM3 (1.0-4.8); MEAN CELL VOLUME 92.9 FL (80.0-100.0); MEAN CORPUSCULAR HEMOGLOBIN 31.8 PG (27.0-34.0); MEAN CORPUSCULAR HGB CONC 34.2 % (32.0-36.0); MONO % 7.5 % (0.0-8.0); NEUT % 66.7 % (16.0-70.0); PLATELET COUNT 176 TH/MM3 (150-450); RED BLOOD COUNT 3.97 MIL/MM3 (4.50-5.90); RED CELL DISTRIBUTION WIDTH 13.3 % (11.6-17.2); WHITE BLOOD COUNT 8.5 TH/MM3 (4.0-11.0)
[2016-12-18 13:08] LABS: BICARBONATE 31.1 MEQ/L (21.0-32.0); POTASSIUM 3.9 MEQ/L (3.5-5.1)
[2016-12-19] VITALS (9 sets, daily range): BP systolic 94–137; BP diastolic 42–65; PULSE 79–97; RESP 18–20; TEMP 97.3–98.6; O2SAT 92–98
[2016-12-19] MEDS: RESP: ALBUTEROL 2.5 MG/IPRATROPIUM 0.5 MG NEB (SCH) NEB ×3 (02:55→20:10)
[2016-12-19] MEDS: LEVOFLOXACIN 750 MG PREMIX INJ 150 ML IV SCH (08:24)
[2016-12-19] MEDS: SODIUM CHLORIDE 0.9% FLUSH 10 ML FLUSH IV FLUSH SCH ×2 (08:25→20:43)
[2016-12-19] MEDS: ASPIRIN 81 MG CHEW TAB CHEW SCH (08:25)
[2016-12-19] MEDS: DOCUSATE SODIUM 50 MG/SENNA 8.6 MG TAB PO SCH ×2 (08:25→20:44)
[2016-12-19] MEDS: predniSONE 20 MG TAB PO SCH (08:25)
[2016-12-19] MEDS: RIVAROXABAN 20 MG TAB PO SCH (08:26)
[2016-12-19] MEDS: TORSEMIDE 5 MG TAB PO SCH ×2 (08:26→17:01)
[2016-12-19] MEDS: LISINOPRIL 20 MG TAB PO SCH (08:26)
[2016-12-19] MEDS: ATORVASTATIN 40 MG TAB PO SCH (08:26)
[2016-12-19] MEDS: METOPROLOL SUCCINATE 25 MG EXTENDED RELEASE TAB PO SCH (09:00)
[2016-12-19] MEDS ORDERED: REGADENOSON INJ 0.4 MG/5 ML SYR ONE (09:23)
--- NOTE | 2016-12-19 10:05 | HHI.PR ---
Subjective Remarks Follow up for dyspnea, pneumonia, COPD. The patient reports feeling much better again today. He only reports minimal shortness of breath however states he's now able to take a much deeper breath and ambulate his room without difficulty. His O2 sat has been stable on room air. Reports very minimal nonproductive cough. Denies fevers/chills. Denies any specific chest pains. He has no other medical complaints at this time. He feels ready for discharge. Going for nuclear stress test today. Objective Vitals Vital Signs Date Time Temp Pulse Resp B/P Pulse Ox O2 Delivery O2 Flow Rate FiO2 12/19/16 07:24 97.9 79 18 137/65 95 12/19/16 04:52 98.6 81 18 94/42 98 12/19/16 00:53 98.2 97 18 122/56 95 12/18/16 21:09 98.1 99 18 117/55 94 12/18/16 20:28 21 12/18/16 19:47 101 12/18/16 15:10 12/18/16 11:37 98.4 53 16 128/65 94 12/18/16 11:00 96 21 I/O 12/18/16 12/18/16 12/18/16 12/19/16 12/19/16 12/19/16 06:59 14:59 22:59 06:59 14:59 22:59 Intake Total 480 ml Output Total 600 ml Balance -120 ml Intake Oral 480 ml Output Urine Total 600 ml # Voids 2 1 # Bowel Movements 0 Result Diagram: 12/18/16 1205 12/18/16 1205 Imaging Last Impressions Chest X-Ray 12/17/16 0458 Signed Impressions: Service Date/Time: Saturday, December 17, 2016 04:56 - CONCLUSION: Mild bilateral lower lung infiltrates, possibly chronic. No focal areas of consolidation. Franklyn Shin MD Objective Remarks GENERAL: Well-nourished, well-developed pleasant elderly male patient in [facility]. SKIN: Warm and dry. No rash. HEENT: Normocephalic. Atraumatic. Pupils equal and round. Mucous membranes pink and moist. CARDIOVASCULAR: Regular rate and rhythm. S1, S2 noted. No murmur appreciated. RESPIRATORY: No accessory muscle use. Clear to auscultation. Breath sounds equal bilaterally. GASTROINTESTINAL: Abdomen soft, non-tender, nondistended. Normoactive bowel sounds x4. MUSCULOSKELETAL: No obvious deformities. No lower extremity edema. Calves nontender/nonedematous. NEUROLOGICAL: Awake and alert. No obvious cranial nerve deficits. Motor grossly within normal limits. Normal speech. PSYCHIATRIC: Appropriate mood and affect; insight and judgment normal. Medications and IVs Current Medications Medications (Trade) Dose Ordered Sig/Daryl Route Start Time Stop Time Status Last Admin (NS Flush) 2 ml UNSCH PRN IV FLUSH 12/17/16 08:00 (NS Flush) 2 ml BID IV FLUSH 12/17/16 09:00 12/19/16 08:25 (Tylenol) 650 mg Q4H PRN PO 12/17/16 08:00 (Zofran Inj) 4 mg Q6H PRN IVP 12/17/16 08:00 (Narcan Inj) 0.4 mg UNSCH PRN IV 12/17/16 08:00 (Zarina-Colace) 1 tab BID PO 12/17/16 09:00 12/19/16 08:25 (Milk Of Magnesia Liq) 30 ml Q12H PRN PO 12/17/16 08:00 (Senokot) 17.2 mg Q12H PRN PO 12/17/16 08:00 (Dulcolax Supp) 10 mg DAILY PRN RECTAL 12/17/16 08:00 (Lactulose Liq) 30 ml DAILY PRN PO 12/17/16 08:00 (Aspirin Chew) 81 mg DAILY CHEW 12/18/16 09:00 12/19/16 08:25 (Prinivil) 20 mg DAILY PO 12/18/16 09:00 12/19/16 08:26 (Toprol Xl) 25 mg DAILY PO 12/18/16 09:00 12/18/16 09:31 (Xarelto) 20 mg DAILY PO 12/18/16 09:00 12/19/16 08:26 Atorvastatin Calcium 40 mg 40 mg DAILY PO 12/18/16 09:00 12/19/16 08:26 (Levaquin 750 Mg Premix Inj) 150 ml @ 100 mls/hr Q24H IV 12/18/16 09:00 12/19/16 08:24 (Demadex) 10 mg BID@,18 PO 12/17/16 18:00 8/16/17 08:26 (Deltasone) 40 mg DAILY PO 12/18/16 10:00 12/19/16 08:25 A/P Problem List: (1) SOB (shortness of breath) ICD Code: R06.02 Status: Acute (2) Pneumonia ICD Code: J18.9 Status: Acute (3) Acute exacerbation of CHF (congestive heart failure) ICD Code: I50.9 Status: Acute Assessment and Plan 81-year-old male with history of COPD, atrial fibrillation s/p ablation, on Xarelto, hypertension, hyperlipidemia, presents with a 2-3 day history of shortness of breath. Dyspnea, Acute Respiratory Distress: unclear etiology, possibly multifactorial with developing pneumonia and COPD exacerbation, rule out CHF. RR 28 upon arrival, s/p Bipap, duonebs, and IV Lasix 40mg x1. CXR images reviewed, shows mild bilateral lower lung infiltrates, possibly chronic, no focal areas of consolidation. BNP 81. Doubt PE while on Xarelto. -continue diuresis for possible CHF exacerbation -continue antibiotics for pneumonia -duonebs daryl and prn -incentive spirometry -passed home O2 walk test, does not require oxygen at discharge Sepsis with Community Acquired Pneumonia: CXR with bilateral lower lung infiltrates. Meets sepsis criteria with leukocytosis WBC 12.9K and tachypnea RR 28, with source pneumonia. -Continue antibiotics with IV Levaquin -monitor CBC, leukocytosis resolved COPD Exacerbation: mild, dyspnea relieved by duonebs, patient reports subjective wheezing overnight -start on prednisone 40mg daily x5days -continue duonebs q8h and q4h prn -symptoms much improved Elevated Troponin: vague complaints of chest pain with dyspnea, suspect angina equivalent. Troponin 0.08. EKG show NSR with no acute ischemic changes. Suspect related to renal insufficiency. -serial troponins flat, however 2nd EKG with possible septal myocardial infarction. -Monitor on telemetry. -Continue patient's aspirin, statin, BB, ACEi -check nuclear stress test today Possible Mild CHF Exacerbation: No significant signs of fluid overload however symptoms of PATTERSON and orthopnea suggest possible CHF. Prior Echo 12/20/14 with mild LVH, vigorous systolic function EF 65-70%, mild , mild MR, mild TR; however Echo 06/17/12 with EF 30-35%. -repeat echocardiogram 12/17 with normal systolic function EF 60-65% -continue diuresis with torsemide 10mg bid -monitor Is&Os -fluid/sodium restrictions Hypertension/Hyperlipidemia: chronic -continue patient's metoprolol, lisinopril, and statin Atrial Fibrillation: EKG with sinus rhythm -continue patient's BB and Xarelto -monitor on telemetry DVT Prophylaxis: on Xarelto Discharge Planning Likely discharge later today if nuclear stress test unremarkable. 1210hrs: Patient's nuclear stress test abnormal with large area of stress induced ischemia. Discussed at length with the patient and his spouse. Will consult cardiology for further evaluation. Will also change to inpatient for ongoing treatment of Dyspnea/COPD/Pneumonia and elevated troponins with abnormal nuclear stress test. Trina Joaquin PA-C Dec 19, 2016 10:05
[2016-12-19] MEDS ORDERED: LEVO750T3 PO (10:08)
[2016-12-19] MEDS ORDERED: IPRASOL NEB (10:08)
[2016-12-19] MEDS ORDERED: PRED20 PO (10:08)
[2016-12-19] MEDS ORDERED: TORS5TAB2 PO (10:08)
--- NOTE | 2016-12-19 10:09 | HHI.DCPOC ---
Discharge Care Plan Diagnosis: (1) Pneumonia (2) SOB (shortness of breath) (3) COPD exacerbation (4) HTN (hypertension) Goals to Promote Your Health * To prevent worsening of your condition and complications * To maintain your health at the optimal level Directions to Meet Your Goals Take your medications as prescribed Follow your dietary instruction Follow activity as directed Keep your appointments as scheduled Take your immunizations and boosters as scheduled If your symptoms worsen call your PCP, if no PCP go to Urgent Care Center or Emergency Room Smoking is Dangerous to Your Health. Avoid second hand smoke Call the 24-hour hour crisis hotline for domestic abuse at Trina Joaquin PA-C Dec 19, 2016 10:09 am
--- NOTE | 2016-12-19 11:02 | RADRPT ---
EXAM DATE/TIME: 12/18/2016 15:06 [facility] COMPARISON: No previous studies available for comparison. INDICATIONS : Mid chest pain with shortness of breath for three days. Angina. DOSE: 31.2 mCi Tc99m Myoview at stress. 30.0 mCi Tc99m Myoview at rest. 0.4 mg Lexiscan STRESS SYMPTOMS: Headache. EJECTION FRACTION: 66% MEDICAL HISTORY : Hypertension. Chronic obstructive pulmonary disease. SURGICAL HISTORY : Appendectomy. Cholecystectomy. ENCOUNTER: Initial ACUITY: 1 day PAIN SCALE: 3/10 LOCATION: Midsternal chest TECHNIQUE: The patient underwent pharmacologic stress with infusion of prescribed dose. Continuous ECG tracing was monitored during stress. Gated SPECT imaging was performed after stress and conventional SPECT i maging was performed at rest. The examination was performed on a SPECT/CT scanner, both attenuation and non-corrected datasets were reviewed. FINDINGS: There is moderate redistribution involving both the lateral and septal regions. There is mild hypokinesis of the septum CONCLUSION: Stress induced ischemia as described above involving large segment of myocardium. RISK CATEGORY: Intermediate (1-3% Annual Mortality Rate) Jeff Montes MD FACR on December 19, 2016 at 10:58 Board Certified Radiologist. This report was verified electronically.
[2016-12-19] MEDS ORDERED: ASPIRIN 325 MG TAB PO SCH (14:30)
[2016-12-19] MEDS ORDERED: DIAZEPAM 5 MG TAB PO SCH (14:30)
[2016-12-19] MEDS ORDERED: diphenhydrAMINE HCL 50 MG CAP PO SCH (14:30)
--- NOTE | 2016-12-19 14:55 | MB ---
cc: LADONNA MATA M.D. DATE OF CONSULTATION: 12/19/2016 REASON FOR CONSULTATION Evaluation of abnormal nuclear stress test. CHIEF COMPLAINT Chest tightness and shortness of breath. HISTORY OF PRESENT ILLNESS Kvng Quesada is an 81-year-old man admitted to the hospital with severe dyspnea. He has had a previous cardiac catheterization in 2011 showing 10-20% disease of all three coronaries. He has had two atrial fibrillation ablations. He is on chronic Xarelto therapy. He came in with shortness of breath and has also been having intermittent chest tightness. The chest tightness has been intermittent for the past five years, it comes and goes. He had it Saturday morning. He has not had any today. Shortness of breath has improved since he has been here. He has some chronic mild intermittent ankle edema. His cardiac risk factors include hypertension, prediabetes, obesity, and previous smoking which he quit in 1969. PAST MEDICAL HISTORY 1. Atrial fibrillation with two prior ablations, currently in sinus rhythm. 2. Hypertension. 3. Hyperlipidemia. 4. Sleep apnea, intolerant of CPAP. 5. Diet-controlled prediabetes. 6. Mild aortic stenosis. PAST SURGICAL HISTORY 1. EP studies. 2. Appendectomy. 3. Tonsillectomy. 4. Cholecystectomy. 5. Back surgery. MEDICATIONS 1. Atorvastatin 20 mg. 2. Spiriva inhaler. 3. Xarelto 20 mg daily. 4. Metoprolol 25 mg daily, extended-release. 5. Lisinopril 20 mg daily. 6. Aspirin 81 mg daily. ALLERGIES Allergies include AMIODARONE AND SHELLFISH. He is not allergic, however, to x-ray dye, and the latest research suggests that shellfish allergy and contrast allergy are different allergies. FAMILY HISTORY Father had colon cancer at age 61. There is no heart disease in his family that he is aware of. His sister had strokes. SOCIAL HISTORY Quit smoking in 1969. Occasional alcohol. 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 PHYSICAL EXAMINATION GENERAL: An obese pleasant white male in no acute distress. VITAL SIGNS: The vital signs are charted. HEENT: Exam unremarkable. NECK: No JVD. No bruits. CHEST: Clear to auscultation. CARDIAC: S1, S2, regular rate and rhythm. I do not appreciate murmurs or gallops. I do not hear a murmur of aortic stenosis. ABDOMEN: Soft, nontender. No masses or organomegaly. EXTREMITIES: Slight venous insufficiency changes but no peripheral edema. Femoral pulses are good, but pedal pulses are a little diminished. IMAGING Chest x-ray shows mild bilateral lower lung infiltrates, possibly chronic. No areas of consolidation. Nuclear stress test was read as moderate lateral and septal redistribution, intermediate risk category. LABORATORY Hematocrit 36.9. Creatinine 1.23. Troponin was 0.08, 0.09, and 0.08, which are nondiagnostic. IMPRESSION An 81-year-old man with COPD comes in with shortness of breath. He has also had chest tightness. His nuclear stress test is not showing significant ischemia. He is known to have very mild coronary artery disease from a cath seven years ago. RECOMMENDATIONS I recommend a cardiac cath to define his anatomy in view of his symptoms and abnormalities on stress test. I am adding nitro paste for antianginal therapy. Continue his beta-claire and aspirin. I have obtained informed consent. The risks were discussed. The cath will be postponed until tomorrow because he is on Xarelto and this needs to be held for 24 hours. Further therapy to be determined. MD ELISHA Morrow/BABAR /2:27 PM /2:34 PM
[2016-12-19] MEDS: NITROGLYCERIN 2% OINT 1 GM PACKET TOPICAL SCH (17:01)
[2016-12-19] MEDS: SODIUM CHLOR 0.9% 1000 ML INJ 1,000 ML IV SCH (17:01)
[2016-12-20] MEDS: NITROGLYCERIN 2% OINT 1 GM PACKET TOPICAL SCH ×2 (00:29→06:00)
[2016-12-20] MEDS: SODIUM CHLOR 0.9% 1000 ML INJ 1,000 ML IV SCH (00:30)
[2016-12-20 01:01] VITALS: PULSE 76
[2016-12-20 01:51] VITALS: BP 124/60; PULSE 61; RESP 18; TEMP 98.2; O2SAT 97
[2016-12-20] MEDS: RESP: ALBUTEROL 2.5 MG/IPRATROPIUM 0.5 MG NEB (SCH) NEB (02:36)
[2016-12-20 04:21] VITALS: BP 130/60; PULSE 83; RESP 19; TEMP 97.3; O2SAT 94
[2016-12-20] MEDS ORDERED: HEPARIN-NS/PF INJ 500 ML ONE (07:25)
[2016-12-20] MEDS ORDERED: MIDAZOLAM HCL 2 MG/2 ML VIAL ONE ×2 (07:25→08:02)
[2016-12-20] MEDS ORDERED: VERAPAMIL HCL 5 MG/2 ML VIAL ONE (07:34)
[2016-12-20] MEDS ORDERED: HEPARIN SODIUM - IV 10,000 UNITS/10 ML VIAL ONE (07:34)
[2016-12-20] MEDS ORDERED: SODIUM CHLOR 0.9% 1000 ML INJ 1,000 ML IV SCH (08:33)
--- NOTE | 2016-12-20 08:42 | CATHPROC ---
Patient Name: SAE LOZANO Study #: [id number] Initial MD: [place] Moura Date of : 1935 Study Date: 12/20/2016 Cardiac Catheterization Report 12/20/2016 8:41:38 AM Financial #: [id number] 1 of 11 Patient Name: SAE LOZANO Study #: [id number] Initial MD: [place] Moura Date of : 1935 Study Date: 12/20/2016 Entire Case Report Patient Information Patient Name SAE LOZANO Date of 1935 Age 81 years Financial # [id number] Gender M AlternateID Lab Number 4 Room Number G74 Height (in) 73.0 Height (cm) 185.4 BSA 2.24 Weight (lbs) 220.0 Weight (kg) 100.0 Patient Address/Phone Number Home Address [facility] Home Phone Number [facility] [phone] Study Information Study Number Admission Scheduled Start Study Start [id number] Dec 17 2016 7:43AM 12/19/2016 Dec 20 2016 7:22AM Reform Service Cardiac Catheterization Admit Source Facility Department Emergency department [facility] [employer] Physician and Clinical Staff Initial [place] [employer] Chauffeur Mayito RN, Aubree Quinteros,RT(R) ScrMaki MattaRT(R) (BS) Procedures Performed Procedure Location (Site) Vessel Name Coronary Angiograms LCA Left Coronary Coronary Angiograms RCA Right Coronary L Heart Cath Wire insertion Radial (right) Radial Art. 12/20/2016 8:41:38 AM Financial #: [id number] 2 of 11 Patient Name: SAE LOZANO Study #: [id number] Initial MD: [place] Moura Date of : 1935 Study Date: 12/20/2016 Equipment Time Buckle Assembler Description Size Mfg Part Number Used/Scraped TRANSDUCER, KRYSTIANUWSHAYAN [id number] 07:28 MERLOS NAVARRO * Used W/STOCKCOCK *[id number] 534-518T *1329904 534-623T *[id number] MPA-2 INFINITI 125CM 534-544T CATHETER *[id number] 534-552S *[id number] 07:28 MALLINCKRODT SYRINGE, ANGIOMAT 150ML 150ML *[id number]/131686 Used 2SUB [id number] 07:28 MED[employer] IND[employer] PACK, CCL CUSTOM * Used *[id number] 07:28 MEDLINE INDUSTRIES SUPPORT, ARTERIAL ADULT 72279 *9281796 Used [id number] 07:28 MEDLINE PACER PEN, SKIN DUAL W/ RULER * Used *[id number] BAND, RADIAL COMPRESSION TR [id number] 08:23 MarkITx MEDICAL 29CM Used LARGE 29 *[id number] 07:28 [employer] WIRE, EXCHANGE 260CM 3MMJ 260CM Used *[id number] 07:28 NAMIC MANIFOLD, 4 PORT * Used *[id number] 07:28 NYCOMED OMNIPAQUE, 350 MG, 100ML 100ML [id number] Used [id number] 07:28 [employer] BLANKET,WARM AIR CCL * Used *[id number] 07:28 [employer] Group JELCO NEEDLE 4056 *[id number] Used SHEATH, FR6 TRANSRADIAL RM*[id number] 07:28 TERSpherical Systems FR 6 Used SLENDER 10CM *[id number] Insurance Information Insurance Payor Private Health Insurance Third Libertarian Third Libertarian Number [facility] History: Current Medications Medication Dosage/Unit Route Frequency Last Date/Time Taken Beta Tejinder ASA Statins (any) XARELTO LISINOPRIL LOPRESSOR 12/20/2016 8:41:38 AM Financial #: [id number] Patient Name: SAE LOZANO Study #: [id number] Initial MD: [place] Moura Date of : 1935 Study Date: 12/20/2016 History: Allergies Allergy Reaction amiodarone PALPITATIONS,SOB iodine SOB Shellfish SOB potassium iodide SOB sodium iodide SOB povidone-iodine SOB shellfish derived SOB History: Risk Factors Family History of Hypertension Dyslipidemia Previous MA Previous Heart Failure Premature CAD Yes Yes No No No Prior Valve Prior PCI Prior CABG Surgery No No No Cerebrovascular Peripheral Artery Chronic Lung On Dialysis Diabetes Disease Disease Disease No No No Yes No History: Symptoms/Diagnosis Selection Items SOB History: Stress Tests Stress or Imaging Studies Performed Yes Standard Exercise Stress Test No Stress Echo No Stress Test SPECT Stress Test SPECT Result Stress Test SPECT Ischemia Risk/Extent Yes Positive Intermediate Stress Test CMR No Cardiac CTA Coronary Calcium Score No No History: Other Disease Selection Items COPD HTN 12/20/2016 8:41:38 AM Financial #: [id number] 4 of 11 Patient Name: SAE LOZANO Study #: [id number] Initial MD: [place] Moura Date of : 1935 Study Date: 12/20/2016 History: Other Current Smoker Method Quit Packs a Day Years Used Pack Years No Cigarettes 46 Years Ago 1 30 30 Labs Hgb (g/dl) Hct (%) WBC (l/cumm) Platelets (thousands) 11.60-17.00 35.00-51.00 4.00-11.00 150.00-450.00 12.6 36.9 8.5 176 Glucose (mg/dl) BUN (mg/dl) Creatinine (mg/dl) BUN:Creatinine (1:x) 74.00-106.00 7.00-18.00 0.50-1.30 10.00-20.00 138 23 1.2 19.2 Na (meq/l) K (meq/l) 136.00-145.00 3.50-5.10 137 3.9 INR (PTT:PT) 0.90-1.10 1.6 Troponin I (ng/ml) CPK-MB (ng/ML) 0.02-0.05 0.50-3.60 0.08 Not Drawn Medication Medication Total Dose (Bolus/Oral) Medication Total Dosage/Unit 1% XYLOCAINE 20 mL RADIAL COCKTAIL 5 mL (Bolus) VERSED 3 mg 12/20/2016 8:41:38 AM Financial #: [id number] 5 of 11 Patient Name: SAE LOZANO Study #: [id number] Initial MD: [place]ico Moura Date of : 1935 Study Date: 12/21/19 17 Medications (Bolus/Oral) Medication Time Given Dosage/Unit Administered By Reason VERSED 12/20/2016 7:43:59 AM 1 mg Mayito PONCE, Driss 1 mg VERSED given in lab by Driss Edmond RN in Left Antecubital via Peripheral IV. Ordered by Chico Moura. VERSED 12/20/2016 7:46:10 AM 1 mg Driss Edmond RN 1 mg VERSED given in lab by Driss Edmond RN in Left Antecubital via Peripheral IV. Ordered by Chico Moura. 1% XYLOCAINE 12/20/2016 7:46:38 AM 20 mL Driss Edmond RN 20 mL 1% XYLOCAINE given in lab by Driss Edmond RN in Right Wrist via Subcutaneous. Ordered by Chico Moura. Ntg 200mcg Verapamil 2.5mg Heparin RADIAL COCKTAIL 12/20/2016 7:55:34 AM 5 mL (Bolus) Driss Edmond RN 2500U 5 mL (Bolus) RADIAL COCKTAIL given in lab by Driss Edmond RN via Radial. Using [Solution Name]. Order ed by Chico Moura. Reason: Ntg 200mcg Verapamil 2.5mg Heparin 2500U. VERSED 12/20/2016 8:02:53 AM 1 mg Driss Edmond RN 1 mg VERSED given in lab by Driss Edmond RN via Peripheral IV. Ordered by [place]ico Moura. Medication (Drip) Medication Time Given Dosage/Unit Concentration/Unit Diluent (ml) Solution IV Solutions 12/20/2016 7:29:42 AM 0 mL (IV) 1000 NaCl .9 Patient arrived on IV Solutions in Left Antecubital via Peripheral IV. Pump/Drip Flow = 20 ml/hr usin g NaCl .9. Ordered by Chico Moura. 12/20/2016 8:41:38 AM Financial #: [id number] Patient Name: SAE LOZANO Study #: [id number] Initial MD: [place] Moura Date of : 1935 Study Date: 12/20/2016 Initial Case Assessment Cardiovascular HR Rhythm NIBP Chest Pain 89 reg 156/95 0 Edema Present Skin color Skin None Normal Warm Circulatory - Right Pulses Dorsalis Pedis Femoral Radial 2 2 2 Scale (0,1,2,3,4,d) Scale (0,1,2,3,4,d) Neurological State Oriented to time-place- Alert Moves all extremities person Respiration - General Respiration Rate SpO2 (%) (B/min) 13 97 Final Case Assessment Cardiovascular HR Rhythm NIBP Chest Pain 91 Sinus 155/92 0 Edema Present Skin color Skin None Normal Warm Dry Circulatory - Right Pulses Dorsalis Pedis Femoral Radial 2 2 2 Scale (0,1,2,3,4,d) Scale (0,1,2,3,4,d) Neurological State Oriented to time-place- Alert Moves all extremities person Respiration - General Respiration Rate SpO2 (%) O2 (lpm) (B/min) 14 94 0 12/20/2016 8:41:38 AM Financial #: [id number] 7 of 11 Patient Name: SAE LOZANO Study #: [id number] Initial MD: [place]ico Mouar Date of : 1935 Study Date: 12/20/2016 Vitals Summary Pain Time HR NIBP SpO2 Resp Temp EtCO2 Apnea Haja Rahman Comment Level 07:28:53 88 156/95 98.0 12 10 0 2 07:34:37 89 160/91 98.0 12 10 0 2 07:38:57 91 177/102 98.0 13 2 07:44:02 99 182/98 97.0 14 10 0 2 07:48:59 88 153/88 97.0 10 10 0 2 07:53:58 94 158/90 93.0 16 10 0 2 07:58:59 96 142/85 96.0 13 10 0 2 08:03:58 92 146/86 94.0 10 10 0 2 08:09:01 92 152/77 89.0 16 10 0 2 08:14:04 97 149/83 90.0 16 10 0 2 08:19:03 93 158/81 91.0 16 10 0 2 08:24:03 91 155/92 94.0 17 10 0 2 Haja Score Summary Time Activity Resp Circ LOC Color Total Score 7:28:53 2 2 2 2 2 10 7:34:37 2 2 2 2 2 10 7:44:02 2 2 2 2 2 10 7:48:59 2 2 2 2 2 10 7:53:58 2 2 2 2 2 10 7:58:59 2 2 2 2 2 10 8:03:58 2 2 2 2 2 10 8:09:01 2 2 2 2 2 10 8:14:04 2 2 2 2 2 10 8:19:03 2 2 2 2 2 10 8:24:03 2 2 2 2 2 10 12/20/2016 8:41:38 AM Financial #: [id number] 8 of 11 Patient Name: SAE LOZANO Study #: [id number] Initial MD: Chico Moura Date of : 1935 Study Date: 12/20/2016 Haja Score Definition Table Activity - 0 Activity - 1 Activity - 2 No Movement to Command Weak Hand Grasp Lift Head, Good Hand Grasp Respiration - 0 Respiration - 1 Respiration - 2 Apneic or Obstructed Shallow Breath, Airway Adjunct Deep Breath, Cough Freely Circulation - 0 Circulation - 1 Circulation - 2 B/P > 50% Admission B/P B/P > 20-50% Admission B/P B/P Stable X3 Level of Consciousness - 0 Level of Consciousness - 1 Level of Consciousness - 2 Not Responding Arousable On Calling Awake and Aware Color - 0 Color- 1 Color - 2 Cyanotic Lips, Nailbed, Skin Pale, Dusky Lexa Or Normal Chronological Log Time Study Chronological Log 7:15:37 Patient arrived via Bed. 7:16:41 Patient Name, D.O.B, / Armband Verified By R.N. 7:22:27 Reference ECG taken 7:27:58 Consent signed by the physician and the patient and verified by the [employer] staff. 7:28:01 Pre-op and post- op instructions given; patient acknowledges understanding of instructions . 7:28:02 Verbal Stimulation=2 Physical Stimulation=2 Airway=2 Respiration=2 TOTAL=8. (0=absent, 1=l imited, 2=present) Vitals capture started with the following parameters, Patient=Adult, Interval=5 min, Initial Mmkedrdi=412 mmHg, 7:28:13 Deflation Rate=5 mmHg, Cuff placed on Left Arm 7:28:17 Allens test performed on the right radial and ulnar artery by Gigi Edmond with a positive resu lt 7:28:53 HR=88 bpm, LLMF=490/95 mmhg, SpO2=98.0 %, Resp=12 B/min, Pain=0, Haja=10, Rahman=2 7:29:10 Patient has been NPO for More than 6Hrs. 7:29:11 Skin Breakdown-none 7:29:26 Patient Warmer Placed on the Table. 7:29:29 A # 20 IV was noted in the Antecubital (left). Grade = 0 Patient arrived on IV Solutions in Left Antecubital via Peripheral IV. Pump/Drip Flow = 20 ml /hr using NaCl .9. Ordered 7:29:42 by Chico Moura. 7:30:00 History and physical on the chart or being dictated. Assessment: Initial Case, HR=89 BPM, Rhythm=reg, ZLPP=383/95 mmhg, Chest Pain=0, Edema=None, Color=Normal, Skin = Warm 7:30:04 Right Pulses: Deangelo Ped=2, Femoral=2, Radial=2 Neurological: State=Alert, Ox3, OLIVER Respiration: Resp=13 B/min, SpO2=97 % 7:30:37 Right Radial and groin(s) prepped with 2% chlorhexidine, and with a 3 min. waiting time. 7:30:53 MD paged 7:34:37 HR=89 bpm, BZHI=981/91 mmhg, SpO2=98.0 %, Resp=12 B/min, Pain=0, Haja=10, Rahman=2 7:38:57 HR=91 bpm, QDKC=138/102 mmhg, SpO2=98.0 %, Resp=13 B/min, Rahman=2 7:39:40 MD arrived. 12/20/2016 8:41:38 AM Financial #: [id number] Patient Name: SAE LOZANO Study #: [id number] Initial MD: Chico Moura Date of : 1935 Study Date: 12/20/2016 7:41:13 Pressure channel 1 zeroed. Time Out. Correct patient, correct procedure,correct physician, ,power injector not loaded with contrast with surgical 7:42:13 team present. Time Out Concurred by MD, individual staff and VICE PRESIDENT DIGITAL STRATEGIST in procedure 7:43:59 1 mg VERSED given in lab by Driss Edmond RN in Left Antecubital via Peripheral IV. Ordered by Chico Moura. 7:44:02 HR=99 bpm, SRTD=455/98 mmhg, SpO2=97.0 %, Resp=14 B/min, Pain=0, Haja=10, Rahman=2 7:44:58 Reference ECG taken 7:46:10 1 mg VERSED given in lab by Driss Edmond RN in Left Antecubital via Peripheral IV. Ordered by Chico Moura. 7:46:29 Case Start 7:46:31 Verbal Stimulation=2 Physical Stimulation=2 Airway=2 Respiration=2 TOTAL=8. (0=absent, 1=li mited, 2=present) 7:46:38 20 mL 1% XYLOCAINE given in lab by Driss Edmond RN in Right Wrist via Subcutaneous. Ordered by Chico Moura. 7:48:59 HR=88 bpm, EWCR=944/88 mmhg, SpO2=97.0 %, Resp=10 B/min, Pain=0, Haja=10, Rahman=2 7:53:58 HR=94 bpm, DKZI=063/90 mmhg, SpO2=93.0 %, Resp=16 B/min, Pain=0, Haja=10, Rahman=2 7:54:25 Access site was Radial Artery.RT 7:54:34 A wire was inserted via Radial (right). A SHEATH, FR6 TRANSRADIAL SLENDER 10CM FR 6 was advanced into the Radial (right) using the Perc utaneous 7:54:44 technique. 5 mL (Bolus) RADIAL COCKTAIL given in lab by Driss Edmond RN via Radial. Using [Solution Name]. Ordered by Martell, 7:55:34 [place]. Reason: Ntg 200mcg Verapamil 2.5mg Heparin 2500U. A JL 3.5 INFINITI CATHETER FR 5 was advanced over a wire. OMNIPAQUE, 350 MG, 100ML 100ML was us ed for 7:57:02 injections. 7:58:59 HR=96 bpm, QBSR=850/85 mmhg, SpO2=96.0 %, Resp=13 B/min, Pain=0, Haja=10, Rahman=2 Recorded Pressure: Ao, HR=90, Condition=Condition 1 8:02:46 (Aorta) Ao 134/72/99 8:02:53 1 mg VERSED given in lab by Driss Edmond RN via Peripheral IV. Ordered by [place]ico Moura. 8:03:58 HR=92 bpm, EHJW=313/86 mmhg, SpO2=94.0 %, Resp=10 B/min, Pain=0, Haja=10, Rahman=2 8:04:09 The LCA was injected and visualized at various angles. OMNIPAQUE, 350 MG, 100ML 100ML used . After removing the current catheter a JR 5.0 INFINITI CATHETER FR 6 was advanced over a WIRE, E XCHANGE 260CM 8:05:52 3MMJ 260CM. 8:09:01 HR=92 bpm, DYAW=255/77 mmhg, SpO2=89.0 %, Resp=16 B/min, Pain=0, Haja=10, Rahman=2 8:09:07 A WIRE, EXCHANGE 260CM 3MMJ 260CM was inserted via Radial (right). 8:11:05 Wire removed 8:11:18 The RCA was injected and visualized at various angles. OMNIPAQUE, 350 MG, 100ML 100ML used . After removing the current catheter a PIGTAIL ANG. INFINITI CATHETER FR 5 was advanced over a W CONNIE, EXCHANGE 8:13:17 260CM 3MMJ 260CM. 8:14:04 HR=97 bpm, GIID=704/83 mmhg, SpO2=90.0 %, Resp=16 B/min, Pain=0, Haja=10, Rahman=2 8:19:03 HR=93 bpm, LZCU=969/81 mmhg, SpO2=91.0 %, Resp=16 B/min, Pain=0, Haja=10, Rahman=2 After removing the current catheter a MPA-2 INFINITI 125CM CATHETER FR 5 was advanced over a WI RE, EXCHANGE 8:19:32 260CM 3MMJ 260CM. 8:20:39 Catheter was removed 8:20:46 Case End Radial Compression Device Used. ~VOLUME ML~ mLs of air placed in BAND, RADIAL COMPRESSION TR LA RGE 29 8:21:55 29CM. Affected hand ~O2 SATURATION~ % O2 saturation. 8:22:40 No case complications noted. 12/20/2016 8:41:38 AM Financial #: [id number] Patient Name: SAE LOZANO Study #: [id number] Initial MD: [place] Moura Date of : 1935 Study Date: 12/20/2016 8:22:43 Cine recording checked. Assessment: Final Case, HR=91 BPM, Rhythm=Sinus, FGEU=378/92 mmhg, Chest Pain=0, Edema=None, Color=Normal, Skin = Warm, Dry 8:22:51 Right Pulses: Deangelo Ped=2, Femoral=2, Radial=2 Neurological: State=Alert, Ox3, OLIVER Respiration: Resp=14 B/min, SpO2=94 %, O2=0 lpm 8:24:03 HR=91 bpm, ATTU=209/92 mmhg, SpO2=94.0 %, Resp=17 B/min, Pain=0, Haja=10, Rahman=2 8:25:04 Bedside Report will be given. 8:25:08 A Left Heart Cath was performed. 8:27:11 Vitals capture stopped. 8:30:16 Patient moved to stretcher Recorded Pressures: Condition 1 Time Chamber Pressure Manual Override (*) 8:02:46 Ao 134/72/99 s/d/m Oxygen Values/Cardiac Output/Resistances: Condition 1 Oxygen Values O2 Consumption O2 Capacity 280 + 171.4 * = Manually Altered + = O2 Consumption is calculated using the formula 125 x BSA and should be considered a rough estimat e. End Study - Contrast Media Used In Study Contrast Total Opened (mL) Total Used (mL) Total Wasted (mL) Omnipaque 150 70 80 End Study - Maximum Contrast Load Max Contrast Load (mL) 416.7 End Study - Radiation Exposure Fluoro Time (minutes) 13.4 End Study - Patient Disposition Complications Transferred To Interventional Outcome No Telemetry Bed No attempt made 12/20/2016 8:41:38 AM Financial #: [id number]
--- NOTE | 2016-12-20 09:03 | MA ---
cc: LADONNA MATA M.D. DATE 12/20/2016 PROCEDURE PERFORMED Coronary angiography, right radial artery approach. Unsuccessful attempt at left ventriculography. BRIEF HISTORY Kvng Quesada is an 81-year-old man with a history of COPD, previous atrial fibrillation status post ablation admitted with a mfi-ac-bvxfk day history shortness of breath. Chest x-ray shows some mild bilateral lower lung infiltrates, possibly chronic. Troponins were mildly elevated, but the troponin curve was flat. Nuclear stress test suggested lateral ischemia. He has already had a previous catheterization which did not show high-grade disease. His last echo in 2014 showed an EF of 65-70%. DESCRIPTION OF PROCEDURE The patient's last dose of Xarelto was 24 hours ago. That and the fact that he is obese, we decided to go right radial. He was sedated with a total 3 mg of IV Versed. Using 1% lidocaine for local anesthesia and ultrasound guidance, a Terumo slender sheath was inserted in the right radial artery. This procedure was complicated due to the marked innominate artery tortuosity, but I was able to use a left 3.5 Theresa catheter to image the left coronary artery and a right five Theresa to image the right coronary artery. I did not have enough catheter length with a pigtail catheter and was unable to cross the valve, so this was not completed. At the end of the case, the sheath was removed with a Terumo band placed. Of note, he received standard cocktail during the procedure with 2500 units of heparin intra-arterially 2.5 mg, Verapamil and 200 2 mcg of nitroglycerin. FINDINGS Hemodynamics. Aortic pressure is 134/72 with a mean of 99. Coronary angiography: The left main coronary artery has 5% irregularities. It bifurcates into the LAD and circumflex vessels. The LAD has about 10-20% ostial disease and only slight irregularities throughout. The circumflex artery has some smooth 30-40% eccentric proximal disease and irregularities beyond that. The right coronary artery has some proximal 20% irregularities and 10% mid irregularities. There were no areas that appeared obstructive. CONCLUSION Mild nonobstructive coronary disease. RECOMMENDATIONS Continue medical therapy. I think his shortness of breath is a combination of COPD and some diastolic dysfunction. Would advise continuing Furosemide 40 mg and potassium 12 mEq daily. MD ELISHA Morrow/DJL /8:35 AM 8:41 AM
[2016-12-20] MEDS ORDERED: TORS10TA2 PO (09:54)
[2016-12-20] MEDS ORDERED: K-TA10TA PO (09:54)
[2016-12-20] MEDS ORDERED: VENTAER INH (10:18)
--- NOTE | 2016-12-20 10:22 | HHI.DS ---
Discharge Summary Admission Date Dec 19, 2016 at 3:50 pm Discharge Date: Dec 20, 2016 Admitting Diagnosis CHF, PNA, Hypoxia. (1) SOB (shortness of breath) ICD Code: R06.02 - Shortness of breath (2) Pneumonia ICD Code: J18.9 - Pneumonia, unspecified organism (3) Acute exacerbation of CHF (congestive heart failure) ICD Code: I50.9 - Heart failure, unspecified (4) COPD exacerbation ICD Code: J44.1 - Obstructive chronic bronchitis with exacerbation Diagnosis: Principal Procedures 12/20/2016 Cardiac cath FINDINGS Hemodynamics. Aortic pressure is 134/72 with a mean of 99. Coronary angiography: The left main coronary artery has 5% irregularities. It bifurcates into the LAD and circumflex vessels. The LAD has about 10-20% ostial disease and only slight irregularities throughout. The circumflex artery has some smooth 30-40% eccentric proximal disease and irregularities beyond that. The right coronary artery has some proximal 20% irregularities and 10% mid irregularities. There were no areas that appeared obstructive. Brief History - From Admission 81-year-old male with history of COPD, atrial fibrillation s/p ablation, on Xarelto, hypertension, hyperlipidemia, mild aortic stenosis, presents with a 3 day history of shortness of breath. He denies any cough or fevers/chills. He's noticed the shortness of breath worse at night with associated orthopnea. Dyspnea also worse with exertion, relieved by sitting upright in chair. He has noticed some mild edema around the ankles. He denies any chest pain or palpitations. He does complain of some back pain which is chronic for him. Denies any other medical complaints at this time including no abdominal pain, nausea/vomiting, diarrhea, constipation, or dysuria. His corner former is Dr. Spear. He believes it's been over a year since his last echocardiogram. CBC/BMP: 12/18/16 1205 12/18/16 1205 Significant Findings Laboratory Tests Test 12/17/16 12/17/16 12/18/16 15:00 21:00 12:05 Troponin I 0.09 NG/ML 0.08 NG/ML (0.02-0.05) (0.02-0.05) Red Blood Count 3.97 MIL/MM3 (4.50-5.90) Hemoglobin 12.6 GM/DL (13.0-17.0) Hematocrit 36.9 % (39.0-51.0) Eosinophils (%) (Auto) 5.4 % (0.0-4.0) Eosinophils # (Auto) 0.5 TH/MM3 (0-0.4) Blood Urea Nitrogen 23 MG/DL (7-18) Estimat Glomerular Filtration 57 ML/MIN (>89) Rate Random Glucose 138 MG/DL (74-106) Imaging Last Impressions Myocardial Perfusion Scan Nuc Med 12/18/16 0600 Signed Impressions: Service Date/Time: Sunday, December 18, 2016 15:06 - CONCLUSION: Stress induced ischemia as described above involving large segment of myocardium. RISK CATEGORY: Intermediate (1-3%% Annual Mortality Rate) Jeff Montes MD FACR Chest X-Ray 12/17/16 0456 Signed Impressions: Service Date/Time: Saturday, December 17, 2016 04:56 - CONCLUSION: Mild bilateral lower lung infiltrates, possibly chronic. No focal areas of consolidation. Franklyn Shin MD PE at Discharge GENERAL: Well-nourished, well-developed pleasant elderly male patient in [facility]. SKIN: Warm and dry. No rash. HEENT: Normocephalic. Atraumatic. Pupils equal and round. Mucous membranes pink and moist. CARDIOVASCULAR: Regular rate and rhythm. S1, S2 noted. No murmur appreciated. RESPIRATORY: No accessory muscle use. Clear to auscultation. Breath sounds equal bilaterally. GASTROINTESTINAL: Abdomen soft, non-tender, nondistended. Normoactive bowel sounds x4. MUSCULOSKELETAL: No obvious deformities. No lower extremity edema. Calves nontender/nonedematous. NEUROLOGICAL: Awake and alert. No obvious cranial nerve deficits. Motor grossly within normal limits. Normal speech. PSYCHIATRIC: Appropriate mood and affect; insight and judgment normal. Pt update on day of discharge Patient is currently doing well. No fever, chills. s/p cardiac cath. Cardiology cleared for discharge. Hospital Course 81-year-old male with history of COPD, atrial fibrillation s/p ablation, on Xarelto, hypertension, hyperlipidemia, presents with a 2-3 day history of shortness of breath. Dyspnea, Acute Respiratory Distress: unclear etiology, possibly multifactorial with developing pneumonia and COPD exacerbation, rule out CHF. RR 28 upon arrival, s/p Bipap, duonebs, and IV Lasix 40mg x1. CXR images reviewed, shows mild bilateral lower lung infiltrates, possibly chronic, no focal areas of consolidation. BNP 82. Doubt PE while on Xarelto. -continue diuresis for possible CHF exacerbation -continue antibiotics for pneumonia -duonebs pino and prn -incentive spirometry -passed home O2 walk test, does not require oxygen at discharge Sepsis with Community Acquired Pneumonia: CXR with bilateral lower lung infiltrates. Meets sepsis criteria with leukocytosis WBC 12.9K and tachypnea RR 28, with source pneumonia. -Continue antibiotics with Levaquin -monitor CBC, leukocytosis resolved COPD Exacerbation: mild, dyspnea relieved by duonebs, patient reports subjective wheezing overnight -start on prednisone 40mg daily x5days -continue duonebs q8h and q4h prn -symptoms much improved Elevated Troponin: vague complaints of chest pain with dyspnea, suspect angina equivalent. Troponin 0.08. EKG show NSR with no acute ischemic changes. Suspect related to renal insufficiency. -serial troponins flat, however 2nd EKG with possible septal myocardial infarction. -Monitor on telemetry. -Continue patient's aspirin, statin, BB, ACEi -s/p cath. No significant CAD. Cardiology cleared for discharge. Possible Mild CHF Exacerbation: No significant signs of fluid overload however symptoms of PATTERSON and orthopnea suggest possible CHF. Prior Echo 12/20/14 with mild LVH, vigorous systolic function EF 65-70%, mild , mild MR, mild TR; however Echo 06/17/12 with EF 30-35%. -repeat echocardiogram 12/17 with normal systolic function EF 60-65% -continue diuresis with torsemide 10mg bid -monitor Is&Os -fluid/sodium restrictions Hypertension/Hyperlipidemia: chronic -continue patient's metoprolol, lisinopril, and statin Atrial Fibrillation: EKG with sinus rhythm -continue patient's BB and Xarelto -monitor on telemetry DVT Prophylaxis: on Xarelto Pt Condition on Discharge: Good Discharge Disposition: Discharge Home Discharge Time: > 30 minutes Discharge Instructions DIET: Follow Instructions for: Heart Healthy Diet Activities you can perform: Regular-No Restrictions Follow up Referrals: PCP Follow-up - 1 Week New Medications: Albuterol 18 GM Inh (Ventolin Hfa 18 GM Inh) 90 Mcg/Act Aer 2 PUFF INH Q4-6H PRN for SHORTNESS OF BREATH, #1 INHALER 0 Refills Levofloxacin (Levofloxacin) 750 Mg Tablet 750 MG PO DAILY for Infection, #3 TAB 0 Refills Potassium Chloride ER (K-Tab) 10 Meq Tab 10 MEQ PO DAILY for Electrolyte Replacement, #30 TAB 0 Refills Torsemide (Torsemide) 10 Mg Tab 10 MG PO BID for heart, #60 TAB 0 Refills Ipratropium-Albuterol Neb (Duoneb) 0.5-2.5 Mg/3 Ml Neb 1 AMPULE NEB Q8HR ALT NEB for COPD, #120 ML Prednisone (Prednisone) 20 Mg Tab 40 MG PO DAILY for COPD, #3 TAB Continued Medications: Aspirin (Aspirin Low Dose) 81 Mg Chew 81 MG CHEW DAILY, TAB 0 Refills Lisinopril (Lisinopril) 20 Mg Tab 20 MG PO DAILY, #30 TAB 0 Refills Metoprolol Succinate ER 24 HR (Metoprolol Succinate ER 24 HR) 25 Mg Tab 25 MG PO DAILY, #30 TAB 0 Refills Rivaroxaban (Xarelto) 20 Mg Tab 20 MG PO DAILY for Blood Clot Prevention, TAB 0 Refills Rosuvastatin (Rosuvastatin) 20 Mg Tab 20 MG PO DAILY for Cholesterol Management, #30 TAB 0 Refills Tiotropium Inh (Spiriva Handihaler) 18 Mcg Cap 18 MCG INH DAILY for COPD, #30 CAP 0 Refills 1 capsule = 18 mcg Cristina Liz DO Dec 20, 2016 10:21
[2016-12-20] MEDS ORDERED: IOHEXOL 350 MG/ML 100 ML BTL (for Cath Lab) OTHER ONE (14:05)
[2016-12-21] MEDS ORDERED: POTASSIUM CHLORIDE 20 MEQ CONTROLLED RELEASE TAB PO SCH (09:00)
[2016-12-21] MEDS ORDERED: FUROSEMIDE 40 MG TAB PO SCH (09:00)
--- NOTE | 2017-01-03 13:08 | PQ ---
Physician Query Response Document PATIENT: SAE LOZANO : 1935 ADMIT DATE: 12/19/2016 3:50 PM DISCH DATE: 12/20/2016 9:55 AM RESPONDING PROVIDER #: camila QUERY TEXT: CHF Acuity and Type Congestive Heart Failure is documented in the Medical Record. Please document the type and acuity (in cludes probable or suspected) Such as: Type: -- Systolic -- Diastolic -- Combined -- Other, please specify Acuity: -- Acute -- Chronic -- Acute on chronic -- Other, please specify Also please document the underlying cause of the CHF (includes probable or suspected) If you have any additional questions/comments and/or concerns, please do not hesitate to reach out to the CDI/Coding Hotline, Ext. [phone]. The patient's Clinical Indicators include: Discharge Summary documents diagnosis of possible mild CHF exacerbation. Discharge Summary - Hospital Course - documents: repeat echocardiogram 12/17 with normal systolic fun ction EF 60-65% -continue diuresis with torsemide 10mg bid Cardiac catheterization report performed 12/20/16 documents under Recommendations: I think his shortn ess of breath is a combination of COPD and some diastolic dysfunction. Would advise continuing Furose mide 40 mg and potassium 12 mEq daily. Query created by: Vanessa Henderson on 12/25/2016 9:54 AM RESPONSE TEXT: Probable acute on chronic diastolic congestive heart failure. Electronically signed by: Karl Liz DO 12/25/2016 1:32 PM
== END 2016-12-20 09:55 | disposition home or self-care (01) | DRG 871 ==
LOC: NEPC 04:51 → NEDA 07:43 → NEPGCP 08:43 → OBSVTOIN 12-19 15:50 → NEDH 12-20 10:42
PROVIDERS: ADMIT Hospitalist; ATTEND Hospitalist
PROC: 5A09357 Assistance with Respiratory Ventilation, Less than 24 Consecutive Hours, Continuous Positive Airway Pressure (ICD-10-PCS; 2016-12-17)
PROC: B2111ZZ Fluoroscopy of Multiple Coronary Arteries using Low Osmolar Contrast (ICD-10-PCS; principal; 2016-12-20 07:30)
DX: A41.9 Sepsis, unspecified organism (principal); J44.0 Chronic obstructive pulmonary disease with (acute) lower respiratory infection; J18.9 Pneumonia, unspecified organism; I50.33 Acute on chronic diastolic (congestive) heart failure; I48.91 Unspecified atrial fibrillation; I35.0 Nonrheumatic aortic (valve) stenosis; J44.1 Chronic obstructive pulmonary disease with (acute) exacerbation; E78.5 Hyperlipidemia, unspecified; I10 Essential (primary) hypertension; R73.03 Prediabetes; G47.33 Obstructive sleep apnea (adult) (pediatric); E66.9 Obesity, unspecified; Z68.29 Body mass index [BMI] 29.0-29.9, adult; I25.10 Atherosclerotic heart disease of native coronary artery without angina pectoris; Z79.02 Long term (current) use of antithrombotics/antiplatelets; Z79.82 Long term (current) use of aspirin; Z87.891 Personal history of nicotine dependence
CPT/HCPCS: 71010; 76937; 78452; 80048; 80053; 82550; 82552; 83735; 83880; 84484; 85025; 85610; 85730; 93005; 93017; 93306; 93454; 94002; 94150; 94620; 94640; 94664; 96365; 96366; 96367; 96372; 96375; A9502; C1769; C1893; G0378; J0456; J0696; J1644; J1940; J1956; J2250; J2785; J7030; J7050; J7512; Q9967

== ENCOUNTER 2017-07-03 03:29 | Inpatient (IN) | payer OTHER, MEDICARE ==
[~2017-07-03] VITALS: Ht 210.8 cm; Wt 105.0 kg
[2017-07-03] VITALS (8 sets, daily range): BP systolic 111–180; BP diastolic 66–84; PULSE 94–110; RESP 18–22; TEMP 97.5–100.9; O2SAT 93–100
[~2017-07-03 03:29] MED LIST changes: -ASPI81 PO; +ASPI81CH6 CHEW; +IPRASOL NEB; +K-TA10TA PO; -LEVA500T PO; +LEVO750T3 PO; -LISI-363 PO; +LISI-515 PO; +METO1TAB42 PO; -METO25CR PO; +PRED20 PO; -PRED50 PO; -RIVA20 PO; +ROSU1TAB8 PO; +SPIRCAP INH; -TIOT18I INH; +TORS10TA2 PO; +VENTAER INH; +XARE20TA PO
[2017-07-03] MEDS ORDERED: SODIUM CHLORIDE 0.9% FLUSH 10 ML FLUSH IVF PRN (03:45)
--- NOTE | 2017-07-03 04:01 | RADRPT ---
EXAM DATE/TIME: 07/03/2017 03:44 [place] COMPARISON: CHEST SINGLE AP, December 17, 2016, 4:56. INDICATIONS : Shortness of breath. MEDICAL HISTORY : Hypertension. Chronic obstructive pulmonary disease. SURGICAL HISTORY : None. ENCOUNTER: Initial ACUITY: 1 day PAIN SCORE: 0/10 LOCATION: Bilateral chest FINDINGS: No new focal pleural or parenchymal opacities. Cardiomediastinal contours are within normal limits gi nneka portable technique. Remainder of the exam is unchanged. CONCLUSION: 1. No acute cardiopulmonary disease. David Oneill MD on July 03, 2017 at 4:00 Board Certified Radiologist. This report was verified electronically.
[2017-07-03 04:07] LABS: AUTOMATED NEUTROPHIL # 3.8 TH/MM3 (1.8-7.7); BASOPHIL % 0.4 % (0.0-2.0); EOSINOPHIL # 0.3 TH/MM3 (0-0.4); EOSINOPHIL % 5.1 % (0.0-4.0); HEMATOCRIT 40.7 % (39.0-51.0); HEMOGLOBIN 13.8 GM/DL (13.0-17.0); LYMPH % 24.6 % (9.0-44.0); LYMPHOCYTE # 1.7 TH/MM3 (1.0-4.8); MEAN CELL VOLUME 92.5 FL (80.0-100.0); MEAN CORPUSCULAR HEMOGLOBIN 31.4 PG (27.0-34.0); MEAN CORPUSCULAR HGB CONC 33.9 % (32.0-36.0); MEAN PLATELET VOLUME 9.3 FL (7.0-11.0); MONO % 13.3 % (0.0-8.0); MONOCYTE # 0.9 TH/MM3 (0-0.9); NEUT % 56.6 % (16.0-70.0); PLATELET COUNT 159 TH/MM3 (150-450); RED CELL DISTRIBUTION WIDTH 14.4 % (11.6-17.2); WHITE BLOOD COUNT 6.8 TH/MM3 (4.0-11.0)
[2017-07-03 04:22] LABS: ALBUMIN 3.8 GM/DL (3.4-5.0); ALT (GPT) 23 U/L (12-78); AST (GOT) 18 U/L (15-37); BICARBONATE 27.5 MEQ/L (21.0-32.0); BLOOD UREA NITROGEN 19 MG/DL (7-18); CALCIUM 8.6 MG/DL (8.5-10.1); CHLORIDE 104 MEQ/L (98-107); GLOMERULAR FILTRATION RATE 45 ML/MIN (>89); GLUCOSE,RANDOM 116 MG/DL (74-106); SODIUM (NA) 138 MEQ/L (136-145)
[2017-07-03 04:26] LABS: ALKALINE PHOSPHATASE 69 U/L (45-117); TOTAL BILIRUBIN ADULT 0.7 MG/DL (0.2-1.0); TOTAL PROTEIN 7.2 GM/DL (6.4-8.2); TROPONIN I LESS THAN 0.02 NG/ML (0.02-0.05)
[2017-07-03] MEDS ORDERED: RESP: ALBUTEROL 2.5 MG/IPRATROPIUM 0.5 MG NEB (SCH) NEB ONE (05:45)
[2017-07-03] MEDS ORDERED: ACETAMINOPHEN 325 MG TAB PO ONE (05:45)
[2017-07-03 06:20] LABS: BILIRUBIN, URINE NEG (NEG); BLOOD, URINE MOD (NEG); GLUCOSE,URINE NEG (NEG); KETONE, URINE NEG (NEG); NITRITE,URINE NEG (NEG); PH, URINE 5.5 (5.0-8.5); URINE COLOR YELLOW (YELLW/STRAW); URINE LEUKOCYTE ESTERASE NEG (NEG)
[2017-07-03] MEDS ORDERED: AZITHROMYCIN INJ 500 MG in SODIUM CHLOR 0.9% 250 ML INJ 250 ML IV ONE (06:30)
[2017-07-03] MEDS ORDERED: cefTRIAXone INJ 1,000 MG in SODIUM CHLORIDE 0.9% INJ 100 ML IV ONE (06:30)
--- NOTE | 2017-07-03 06:55 | PD ---
HPI . Acute respiratory distress Chief Complaint: Respiratory Distress Time Seen by Provider: 03:32 Travel History International Travel<30 days: No Contact w/Intl Traveler<30days: No Traveled to known affect area: No History of Present Illness HPI 81-year-old male with a history of COPD and atrial fibrillation who presents with significant cough and shortness of breath fever this morning. Patient brought in by EMS, received DuoNeb 1, albuterol nebulizers 2, Cymetra 125 en route. As per EMS/parts sales representative description, patient had oxygen saturation in the mid to high 80s and was extremely dyspneic. Patient has significant improvement by presentation. Patient still has wheezing is coughing profusely, having difficulty partaking history secondary to same. Patient is somewhat pale and diaphoretic for which EMS stated patient was much worse at home. There is no cyanosis. Patient denies chest pain. PFSH Past Medical History Narrative Medical Past medical history reviewed Hx Anticoagulant Therapy: Yes (XARALTO) Arthritis: Yes (Never been diagnosed) Asthma: No Atrial Fibrillation: Yes Autoimmune Disease: No Blood Disorders: No Anxiety: No Depression: No Heart Rhythm Problems: Yes Cancer: No Cardiac Catheterization: Yes (2011) Cardiovascular Problems: Yes (HTN, ABLATIONS) High Cholesterol: Yes Chemotherapy: No Chest Pain: No Congestive Heart Failure: No COPD: Yes Cerebrovascular Accident: No Coronary Artery Disease: Yes (A fib with ablasion) Diabetes: No Diminished Hearing: No Endocrine: No Gastrointestinal Disorders: No GERD: No Glaucoma: No Genitourinary: No Hepatitis: No Hiatal Hernia: No Hypertension: Yes Immune Disorder: No Kidney Stones: No Musculoskeletal: Yes (CHRONIC BACK PN) Neurologic: No Psychiatric: No Reproductive: No Respiratory: Yes (COPD) Immunizations Current: Yes Migraines: Yes (Flashing in front of eyes q6 months, prior phenobarbital use) Myocardial Infarction: Yes Radiation Therapy: No Renal Failure: No Seizures: No Sickle Cell Disease: No Sleep Apnea: Yes Thyroid Disease: No Ulcer: No Past Surgical History Abdominal Surgery: Yes (Gall bladder, appendix - both removed) AICD: No Appendectomy: Yes Arteriovenous Shunt: No Cardiac Surgery: Yes (2 ablations) Cholecystectomy: Yes Ear Surgery: No Endocrine Surgery: No Eye Surgery: Yes (cataracts, both eyes) Genitourinary Surgery: No Gynecologic Surgery: No Insulin Pump: No Joint Replacement: No Neurologic Surgery: No Oral Surgery: No Pacemaker: No Thoracic Surgery: No Tonsillectomy: Yes Other Surgery: Yes Social History Alcohol Use: Yes (OCC) Tobacco Use: No Substance Use: No Allergies-Medications (Allergen,Severity, Reaction): Coded Allergies: amiodarone (Unverified Allergy, Severe, PALPITATIONS,SOB, 07/03/17) iodine (Unverified Allergy, Severe, SOB, 07/03/17) potassium iodide (Unverified Allergy, Severe, SOB, 07/03/17) povidone-iodine (Unverified Allergy, Severe, SOB, 07/03/17) shellfish derived (Unverified Allergy, Severe, SOB, 07/03/17) sodium iodide (Unverified Allergy, Severe, SOB, 07/03/17) sodium iodide (Unverified Allergy, Severe, SOB, 07/03/17) Reported Meds & Prescriptions Reported Meds & Active Scripts Active Ventolin Hfa 18 GM Inh (Albuterol Sulfate) 90 Mcg/Act Aer 2 Puff INH Q4-6H PRN Torsemide 10 Mg Tab 10 Mg PO BID Duoneb (Ipratropium-Albuterol Neb) 0.5-2.5 Mg/3 Ml Neb 1 Ampule NEB Q8HR ALT NEB Reported Rosuvastatin (Rosuvastatin Calcium) 20 Mg Tab 20 Mg PO DAILY Spiriva Handihaler (Tiotropium Inh) 18 Mcg Cap 18 Mcg INH DAILY 1 capsule = 18 mcg Xarelto (Rivaroxaban) 20 Mg Tab 20 Mg PO DAILY Metoprolol Succinate ER 24 HR (Metoprolol Succinate) 25 Mg Tab 25 Mg PO DAILY Lisinopril 20 Mg Tab 20 Mg PO DAILY Aspirin Low Dose (Aspirin) 81 Mg Chew 81 Mg CHEW DAILY Narrative Medication Allergies and medications reviewed Review of Systems Except as stated in HPI: all other systems reviewed are Neg General / Constitutional: Positive: Fever, Chills Eyes: No: Diploplia, Blurred Vision, Visual changes HENT: No: Headaches, Lightheadedness, Neck Stiffness Cardiovascular: Positive: Irregular Rhythm, Diaphoresis, No: Chest Pain or Discomfort, Palpitations Respiratory: Positive: Cough, Shortness of Breath, Wheezing, No: Sneezing, Orthopnea, Hemoptysis, Stridor, Night Sweats, Pleuritic Pain Gastrointestinal: No: Nausea, Abdominal Pain Genitourinary: No: Dysuria Musculoskeletal: No: Pain Skin: No Rash Neurologic: No: Weakness Psychiatric: No: Depression Endocrine: No: Polydipsia Hematologic/Lymphatic: No: Easy Bruising Physical Exam Narrative GENERAL: Awake and alert, acutely dyspneic, slightly pale, diaphoretic, warm to touch, febrile 100.3 orally. Tachycardic at 110 bpm irregular regular atrial fibrillation on monitor with frequent PVCs SKIN: Pale diaphoretic improving, no rashes HEAD: Atraumatic. Normocephalic. EYES: Pupils equal and round. No scleral icterus. No injection or drainage. ENT: No nasal bleeding or discharge. Mucous membranes pink and moist. NECK: Trachea midline. No JVD. CARDIOVASCULAR: Tachycardic irregular regular rhythm, atrial fibrillation monitor with frequent PVCs RESPIRATORY: Significant wheeze bilateral, prolonged expiratory phase, mild rhonchi left versus right. Patient has outwardly visible apical Left worse than right which patient states is chronic condition. There is no neck crepitus GASTROINTESTINAL: Abdomen soft, non-tender, nondistended. Hepatic and splenic margins not palpable. Protuberant abdomen which patient states is chronic MUSCULOSKELETAL: Extremities without clubbing, cyanosis, or edema. No obvious deformities. NEUROLOGICAL: Awake and alert. No obvious gross focal deficits PSYCHIATRIC: Appropriate mood and affect; insight and judgment normal. Data Data Last Documented VS Vital Signs Date Time Temp Pulse Resp B/P (MAP) Pulse Ox O2 Delivery O2 Flow Rate FiO2 07/03/17 04:06 18 96 Room Air 07/03/17 03:43 104 07/03/17 03:33 100.9 180/84 (116) Orders Orders Complete Blood Count With Diff (07/03/17 03:32) Comprehensive Metabolic Panel (07/03/17 03:32) Troponin I (07/03/17 03:32) Urinalysis - C+S If Indicated (07/03/17 03:32) Influenzae A/B Antigen (07/03/17 03:32) Blood Culture (07/03/17 03:32) Iv Access Insert/Monitor (07/03/17 03:32) Electrocardiogram (07/03/17 03:32) Ecg Monitoring (07/03/17 03:32) Oximetry (07/03/17 03:32) Oxygen Administration (07/03/17 03:32) Chest, Single Ap (07/03/17 03:32) Sodium Chloride 0.9% Flush (Ns Flush) (07/03/17 03:45) Lactic Acid Sepsis Protocol (07/03/17 03:49) Acetaminophen (Tylenol) (07/03/17 05:45) Albuterol-Ipratropium Neb (Duoneb Neb) (07/03/17 05:45) Ceftriaxone Inj (Rocephin Inj) (07/03/17 06:30) Azithromycin Inj (Zithromax Inj) (07/03/17 06:30) Labs Laboratory Tests Test 07/03/17 03:37 07/03/17 03:50 07/03/17 06:05 White Blood Count 6.8 TH/MM3 Red Blood Count 4.40 MIL/MM3 Hemoglobin 13.8 GM/DL Hematocrit 40.7 % Mean Corpuscular Volume 92.5 FL Mean Corpuscular Hemoglobin 31.4 PG Mean Corpuscular Hemoglobin Concent 33.9 % Red Cell Distribution Width 14.4 % Platelet Count 159 TH/MM3 Mean Platelet Volume 9.3 FL Neutrophils (%) (Auto) 56.6 % Lymphocytes (%) (Auto) 24.6 % Monocytes (%) (Auto) 13.3 % Eosinophils (%) (Auto) 5.1 % Basophils (%) (Auto) 0.4 % Neutrophils # (Auto) 3.8 TH/MM3 Lymphocytes # (Auto) 1.7 TH/MM3 Monocytes # (Auto) 0.9 TH/MM3 Eosinophils # (Auto) 0.3 TH/MM3 Basophils # (Auto) 0.0 TH/MM3 CBC Comment DIFF FINAL Differential Comment Blood Urea Nitrogen 19 MG/DL Creatinine 1.50 MG/DL Random Glucose 116 MG/DL Total Protein 7.2 GM/DL Albumin 3.8 GM/DL Calcium Level 8.6 MG/DL Alkaline Phosphatase 69 U/L Aspartate Amino Transf (AST/SGOT) 18 U/L Alanine Aminotransferase (ALT/SGPT) 23 U/L Total Bilirubin 0.7 MG/DL Sodium Level 138 MEQ/L Potassium Level 4.7 MEQ/L Chloride Level 104 MEQ/L Carbon Dioxide Level 27.5 MEQ/L Anion Gap 7 MEQ/L Estimat Glomerular Filtration Rate 45 ML/MIN Troponin I LESS THAN 0.02 NG/ML Lactic Acid Level 1.7 mmol/L Urine Color YELLOW Urine Turbidity CLEAR Urine pH 5.5 Urine Specific [place] 1.011 Urine Protein NEG mg/dL Urine Glucose (UA) NEG mg/dL Urine Ketones NEG mg/dL Urine Occult Blood MOD Urine Nitrite NEG Urine Bilirubin NEG Urine Urobilinogen LESS THAN 2.0 MG/DL Urine Leukocyte Esterase NEG Urine RBC 100 /hpf Urine WBC 1 /hpf Microscopic Urinalysis Comment CULT NOT INDICATED MDM Medical Decision Making Medical Screen Exam Complete: Yes Emergency Medical Condition: Yes Medical Record Reviewed: Yes Differential Diagnosis COPD exacerbation, acute bronchitis, pneumonia, atrial fibrillation, RVR, PVCs Narrative Course Chest x-ray shows very mild increase interstitial pattern with slight haziness in left lung field could represent early pneumonia. Considering patient's presentation, febrile status, history of COPD, patient was covered with antibiotics for community-acquired pneumonia ceftriaxone and Zithromax IV, after blood cultures obtained. Laboratory examinations reviewed, no significant abnormalities. Diagnosis Primary Impression: COPD exacerbation Additional Impression: Acute bronchitis Qualified Codes: J20.8 - Acute bronchitis due to other specified organisms Admitting Information Admitting Physician Requests: Observation Condition: Celio Larios MD Jul 03, 2017 06:55
[2017-07-03] MEDS ORDERED: RESP: ALBUTEROL 2.5 MG/IPRATROPIUM 0.5 MG NEB (PRN) NEB (07:00)
[2017-07-03] MEDS ORDERED: ONDANSETRON HCL 4 MG/2 ML VIAL IVP PRN ×2 (07:00→10:15)
[2017-07-03] MEDS ORDERED: NALOXONE HCL 0.4 MG/ML AMP IV PUSH PRN ×2 (07:00→10:15)
[2017-07-03] MEDS ORDERED: ACETAMINOPHEN 325 MG TAB PO PRN ×3 (07:00→10:15)
[2017-07-03] MEDS ORDERED: SODIUM CHLORIDE 0.9% FLUSH 10 ML FLUSH IV FLUSH PRN ×3 (07:00→10:15)
[2017-07-03] MEDS: SODIUM CHLORIDE 0.9% FLUSH 10 ML FLUSH IV FLUSH SCH ×2 (09:00→20:50)
[2017-07-03] MEDS ORDERED: RESP: ALBUTEROL 2.5 MG/IPRATROPIUM 0.5 MG NEB (SCH) NEB (10:00)
--- NOTE | 2017-07-03 10:01 | HHI.HP ---
[facility] Service [facility] Primary Care Physician Unknown Admission Diagnosis RESP DISTRESS Diagnoses: (1) COPD exacerbation Diagnosis: Principal (2) Acute bronchitis Diagnosis: Principal (3) Pneumonia Diagnosis: Principal (4) SOB (shortness of breath) Diagnosis: Principal (5) HTN (hypertension) Diagnosis: Secondary (6) JUAN (obstructive sleep apnea) Diagnosis: Secondary (7) Atrial fibrillation Diagnosis: Secondary Chief Complaint: Shortness of breath Travel History International Travel<30 Days: No Contact w/Intl Traveler <30 Da: No Traveled to Known Affected Are: No History of Present Illness Patient is a 81-year-old male. He presented with increasing shortness of breath. Patient has a history of COPD and atrial fibrillation. Cane and with increasing cough and shortness of breath and fevers early this morning. Patient was brought in by EMS. Received DuoNeb 1 as well as albuterol nebulizers 2 as well as Solu-Medrol 125 mg IV by EMS prior to coming to the hospital. Patient was noted to have an oxygen saturation in the mid to high 80s was very shortness of breath and dyspneic has had some improvement. Has had some wheezing and coughing was found to have pneumonia/bronchitis and COPD exacerbation and will be admitted for IV antibiotics and IV steroids DuoNeb 's incentive spirometry and Mucinex Review of Systems Constitutional: COMPLAINS OF: Diaphoretic episodes, Fatigue, Fever, DENIES: Weight gain, Weight loss, Chills, Dizziness, Change in appetite, Night Sweats Endocrine: DENIES: Heat/cold intolerance, Polydipsia, Polyuria, Polyphagia Eyes: DENIES: Blurred vision, Diplopia, Eye inflammation, Eye pain, Vision loss , Photosensitivity, Double Vision Ears, nose, mouth, throat: DENIES: Tinnitus, Hearing loss, Vertigo, Nasal discharge Respiratory: COMPLAINS OF: Cough, Wheezing, Sputum production, Shortness of breath, DENIES: Apneas, Snoring, Hemoptysis Cardiovascular: DENIES: Chest pain, Palpitations, Syncope, Dyspnea on Exertion , PND, Lower Extremity Edema, Orthopnea Gastrointestinal: DENIES: Abdominal pain, Black stools, Bloody stools, Constipation, Diarrhea, Nausea Genitourinary: DENIES: Sexual dysfunction, Urinary frequency Musculoskeletal: DENIES: Joint pain, Muscle aches Integumentary: DENIES: Abnormal pigmentation, Nail changes Hematologic/lymphatic: DENIES: Bruising, Lymphadenopathy Immunologic/allergic: DENIES: Eczema, Urticaria Neurologic: DENIES: Abnormal gait, Headache, Localized weakness, Paresthesias, Seizures, Speech Problems, Tremor, Poor Balance Psychiatric: DENIES: Anxiety, Confusion, Mood changes, Depression, Hallucinations, Agitation, Suicidal Ideation, Homicidal Ideation, Delusions Except as stated in HPI: all other systems reviewed are Neg Past Family Social History Past Medical History cHRONIC anticoagulation with Xarelto for atrial fibrillation Hypertension History of cardiac ablation Hypercholesterolemia COPD Chronic back pain History of CO Obstructive sleep apnea Past Surgical History Cardiac ablations 2 Cholecystectomy Appendectomy Cataract surgery bilaterally Tonsillectomy Reported Medications Reported Meds & Active Scripts Active Ventolin Hfa 18 GM Inh (Albuterol Sulfate) 90 Mcg/Act Aer 2 Puff INH Q4-6H PRN Torsemide 10 Mg Tab 10 Mg PO BID Duoneb (Ipratropium-Albuterol Neb) 0.5-2.5 Mg/3 Ml Neb 1 Ampule NEB Q8HR ALT NEB Reported Rosuvastatin (Rosuvastatin Calcium) 20 Mg Tab 20 Mg PO DAILY Spiriva Handihaler (Tiotropium Inh) 18 Mcg Cap 18 Mcg INH DAILY 1 capsule = 18 mcg Xarelto (Rivaroxaban) 20 Mg Tab 20 Mg PO DAILY Metoprolol Succinate ER 24 HR (Metoprolol Succinate) 25 Mg Tab 25 Mg PO DAILY Lisinopril 20 Mg Tab 20 Mg PO DAILY Aspirin Low Dose (Aspirin) 81 Mg Chew 81 Mg CHEW DAILY Allergies: Coded Allergies: amiodarone (Unverified Allergy, Severe, PALPITATIONS,SOB, 07/03/17) iodine (Unverified Allergy, Severe, SOB, 07/03/17) potassium iodide (Unverified Allergy, Severe, SOB, 07/03/17) povidone-iodine (Unverified Allergy, Severe, SOB, 07/03/17) shellfish derived (Unverified Allergy, Severe, SOB, 07/03/17) sodium iodide (Unverified Allergy, Severe, SOB, 07/03/17) sodium iodide (Unverified Allergy, Severe, SOB, 07/03/17) Active Ordered Medications Current Medications Sodium Chloride (NS Flush) 2 ml UNSCH PRN IVF FLUSH AFTER USING IV ACCESS; Start 07/03/17 at 03:45; Stop 07/03/17 at 07:08; Status DC Acetaminophen (Tylenol) 650 mg ONCE ONCE PO Last administered on 07/03/17at 05: 45; Start 07/03/17 at 05:45; Stop 07/03/17 at 05:46; Status DC Albuterol/ Ipratropium (Duoneb Neb) 1 ampule ONCE ONCE NEB Last administered on 07/03/17at 05:51; Start 07/03/17 at 05:45; Stop 07/03/17 at 05:46; Status DC Ceftriaxone Sodium 1000 mg/ Sodium Chloride 100 ml @ 200 mls/hr ONCE ONCE IV Last administered on 07/03/17at 06:28; Start 07/03/17 at 06:30; Stop 07/03/17 at 06:59; Status DC Azithromycin 500 mg/Sodium Chloride 250 ml @ 250 mls/hr ONCE ONCE IV Last administered on 07/03/17at 07:09; Start 07/03/17 at 06:30; Stop 07/03/17 at 07:29 ; Status DC Sodium Chloride (NS Flush) 2 ml UNSCH PRN IV FLUSH FLUSH AFTER USING IV ACCESS ; Start 07/03/17 at 07:00 Sodium Chloride (NS Flush) 2 ml BID IV FLUSH ; Start 07/03/17 at 09:00 Acetaminophen (Tylenol) 650 mg Q4H PRN PO TEMP > 100.4; Start 07/03/17 at 07:00 Ondansetron HCl (Zofran Inj) 4 mg Q6H PRN IVP NAUSEA OR VOMITING; Start at 07:00 Naloxone HCl (Narcan Inj) 0.4 mg UNSCH PRN IV PUSH SEE LABEL COMMENTS; Start at 07:00 Albuterol/ Ipratropium (Duoneb Neb) 1 ampule Q6HR NEB NEB Last administered on 07/03/17at 08:37; Start 07/03/17 at 10:00 Albuterol/ Ipratropium (Duoneb Neb) 1 ampule Q2HR NEB PRN NEB sob; Start at 07:00 Sodium Chloride 1,000 ml @ 84 mls/hr [id number] IV ; Start 07/03/17 at 07:15 Family History Both parents Social History Occasional alcoholic beverage Denies any illicits Denies any tobacco Denies any substance abuse Physical Exam Vital Signs Vital Signs Date Time Temp Pulse Resp B/P (MAP) Pulse Ox O2 Delivery O2 Flow Rate FiO2 07/03/17 07:30 100 20 111/66 (81) 94 Room Air 07/03/17 04:06 18 96 Room Air 07/03/17 03:43 104 18 95 Room Air 07/03/17 03:33 100.9 104 22 180/84 (116) 100 Physical Exam GENERAL: This is a well-nourished, well-developed patient, in moderate distress. SKIN: No rashes, ecchymoses or lesions. Cool and dry. HEAD: Atraumatic. Normocephalic. No temporal or scalp tenderness. EYES: Pupils equal round and reactive. Extraocular motions intact. No scleral icterus. No injection or drainage. ENT: Nose without bleeding, purulent drainage or septal hematoma. Throat without erythema, tonsillar hypertrophy or exudate. Uvula midline. Airway patent. NECK: Trachea midline. No JVD or lymphadenopathy. Supple, nontender, no meningeal signs. CARDIOVASCULAR: IRRegular rate and rhythm without murmurs, gallops, or rubs. S1 and S2 no S3 or S4 RESPIRATORY: Rhonchi and wheezes bilaterally. Breath sounds equal bilaterally. Coarse breath sounds bilaterally GASTROINTESTINAL: Abdomen soft, non-tender, nondistended. No hepato-splenomegaly , or palpable masses. No guarding. MUSCULOSKELETAL: Extremities without clubbing, cyanosis, or edema. No joint tenderness, effusion, or edema noted. No calf tenderness. Negative Homans sign bilaterally. NEUROLOGICAL: Awake and alert. Cranial nerves II through XII intact. Motor and sensory grossly within normal limits. Five out of 5 muscle strength in all muscle groups. Normal speech. Insight and judgment is good Mood and behavior is appropriate Laboratory Laboratory Tests Test 07/03/17 03:37 07/03/17 03:50 07/03/17 06:05 White Blood Count 6.8 Red Blood Count 4.40 Hemoglobin 13.8 Hematocrit 40.7 Mean Corpuscular Volume 92.5 Mean Corpuscular Hemoglobin 31.4 Mean Corpuscular Hemoglobin Concent 33.9 Red Cell Distribution Width 14.4 Platelet Count 159 Mean Platelet Volume 9.3 Neutrophils (%) (Auto) 56.6 Lymphocytes (%) (Auto) 24.6 Monocytes (%) (Auto) 13.3 Eosinophils (%) (Auto) 5.1 Basophils (%) (Auto) 0.4 Neutrophils # (Auto) 3.8 Lymphocytes # (Auto) 1.7 Monocytes # (Auto) 0.9 Eosinophils # (Auto) 0.3 Basophils # (Auto) 0.0 CBC Comment DIFF FINAL Differential Comment Blood Urea Nitrogen 19 Creatinine 1.50 Random Glucose 116 Total Protein 7.2 Albumin 3.8 Calcium Level 8.6 Alkaline Phosphatase 69 Aspartate Amino Transf (AST/SGOT) 18 Alanine Aminotransferase (ALT/SGPT) 23 Total Bilirubin 0.7 Sodium Level 138 Potassium Level 4.7 Chloride Level 104 Carbon Dioxide Level 27.5 Anion Gap 7 Estimat Glomerular Filtration Rate 45 Troponin I LESS THAN 0.02 Lactic Acid Level 1.7 Urine Color YELLOW Urine Turbidity CLEAR Urine pH 5.5 Urine Specific [place] 1.011 Urine Protein NEG Urine Glucose (UA) NEG Urine Ketones NEG Urine Occult Blood MOD Urine Nitrite NEG Urine Bilirubin NEG Urine Urobilinogen LESS THAN 2.0 Urine Leukocyte Esterase NEG Urine RBC 100 Urine WBC 1 Microscopic Urinalysis Comment CULT NOT INDICATED Date/Time Source Procedure Growth Status 07/03/17 03:38 Blood Peripheral Aerobic Blood Culture Pending Received 07/03/17 03:38 Blood Peripheral Anaerobic Blood Culture Pending Received 07/03/17 03:47 Nasal Washing Influenza Types A,B Antigen (CHIP) - Final NEGATIVE FOR FLU A AND B ANTIGEN.... Complete Result Diagram: 07/03/1733607/03/17336 Imaging Last Impressions Chest X-Ray 07/03/17331 Signed Impressions: Service Date/Time: Monday, July 03, 2017 03:44 - CONCLUSION: 1. No acute cardiopulmonary disease. MD Emily Wilder VTE Risk Assessment Emily VTE Risk Assessment: Mod/High Risk (score >= 2) Caprini Risk Assessment Model Point Value = 1 Point Value = 2 Point Value = 3 Point Value = 5 Age 41-60 Minor surgery BMI > 25 kg/m2 Swollen legs Varicose veins or History of unexplained or recurrent spontaneous Oral contraceptives or hormone replacement Sepsis (< 1 month) Serious lung disease, including pneumonia (< 1 month) Abnormal pulmonary function Acute myocardial infarction Congestive heart failure (< 1 month) History of inflammatory bowel disease Medical patient at bed rest Age 61-74 Arthroscopic surgery Major open surgery (> 45 min) Laparoscopic surgery (> 45 min) Malignancy Confined to bed (> 72 hours) Immobilizing plaster cast Central venous access Age >= 75 History of VTE Family history of VTE Factor V Leiden Prothrombin [id number] Lupus anticoagulant Anticardiolipin antibodies Elevated serum homocysteine Heparin-induced thrombocytopenia Other congenital or acquired thrombophilia Stroke (< 1 month) Elective arthroplasty Hip, pelvis, or leg fracture Acute spinal cord injury (< 1 month) Prophylaxis Regimen Total Risk Factor Score Risk Level Prophylaxis Regimen 0-1 Low Early ambulation 2 Moderate Order ONE of the following: *Sequential Compression Device (SCD) *Heparin 5000 units SQ BID 3-4 Higher Order ONE of the following medications: *Heparin 5000 units SQ TID *Enoxaparin/Lovenox 40 mg SQ daily (WT < 150 kg, CrCl > 30 mL/min) *Enoxaparin/Lovenox 30 mg SQ daily (WT < 150 kg, CrCl > 10-29 mL/min) *Enoxaparin/Lovenox 30 mg SQ BID (WT < 150 kg, CrCl > 30 mL/min) AND/OR *Sequential Compression Device (SCD) 5 or more Highest Order ONE of the following medications: *Heparin 5000 units SQ TID (Preferred with Epidurals) *Enoxaparin/Lovenox 40 mg SQ daily (WT < 150 kg, CrCl > 30 mL/min) *Enoxaparin/Lovenox 30 mg SQ daily (WT < 150 kg, CrCl > 10-29 mL/min) *Enoxaparin/Lovenox 30 mg SQ BID (WT < 150 kg, CrCl > 30 mL/min) AND *Sequential Compression Device (SCD) Assessment and Plan Problem List: (1) JUAN (obstructive sleep apnea) ICD Code: G47.33 - JUAN (obstructive sleep apnea) Status: Chronic (2) HTN (hypertension) ICD Code: I10 - Hypertension Status: Chronic (3) Pneumonia ICD Code: J18.9 - Pneumonia, unspecified organism Status: Acute (4) SOB (shortness of breath) ICD Code: R06.02 - Shortness of breath Status: Acute (5) Atrial fibrillation ICD Code: I48.91 - Atrial fibrillation Status: Chronic (6) COPD exacerbation ICD Code: J44.1 - Obstructive chronic bronchitis with exacerbation Status: Acute (7) Acute bronchitis ICD Code: J20.9 - Acute bronchitis, unspecified Status: Acute Assessment and Plan COPD exacerbation. And bronchitis will continue on Zithromax and Rocephin. Continue with Solu-Medrol. Continue with Mucinex continue duo nebs continue with incentive spirometry Continue on oxygen Atrial fibrillation continue on home medications continue on Xarelto as at home Hyperlipidemia continue on her home medications Hypertension continue on home medications Incentive spirometry DVT prophylaxis with Xarelto GI prophylaxis Code Status Full code Discussed Condition With Patient and RN Physician Certification 2 Midnight Certification Type: Admission for Inpatient Services Order for Inpatient Services The services are ordered in accordance with Medicare regulations or non- Medicare payer requirements, as applicable. In the case of services not specified as inpatient-only, they are appropriately provided as inpatient services in accordance with the 2-midnight benchmark. Estimated LOS (days): 2 days is the estimated time the patient will need to remain in the hospital, assuming treatment plan goals are met and no additional complications. Post-Hospital Plan: Not yet determined Problem Qualifiers (1) Acute bronchitis: Qualified Codes: J20.8 - Acute bronchitis due to other specified organisms Jeff Kong DO Jul 03, 2017 10:01
[2017-07-03] MEDS ORDERED: BISACODYL 10 MG SUPP RECTAL PRN (10:15)
[2017-07-03] MEDS ORDERED: ZOLPIDEM TARTRATE 5 MG TAB PO PRN (10:15)
[2017-07-03] MEDS ORDERED: oxyCODONE/ACETAMINOPHEN 10 MG/325 MG TAB PO PRN (10:15)
[2017-07-03] MEDS ORDERED: LACTULOSE SYRUP 20 GM/30 ML CUP PO PRN (10:15)
[2017-07-03] MEDS ORDERED: oxyCODONE/ACETAMINOPHEN 5 MG/325 MG TAB PO PRN (10:15)
[2017-07-03] MEDS ORDERED: MORPHINE SULFATE 2 MG/ML INJ IV PUSH PRN (10:15)
[2017-07-03] MEDS ORDERED: SENNOSIDES 8.6 MG TAB PO PRN (10:15)
[2017-07-03] MEDS ORDERED: RESP: ALBUTEROL 2.5 MG/IPRATROPIUM 0.5 MG NEB (PRN) INH (10:15)
[2017-07-03] MEDS ORDERED: METOCLOPRAMIDE HCL 10 MG/2 ML VIAL IV PUSH PRN (10:15)
[2017-07-03] MEDS ORDERED: MORPHINE SULFATE 4 MG/ML INJ IV PUSH PRN (10:30)
[2017-07-03] MEDS: SODIUM CHLOR 0.9% 1000 ML INJ 1,000 ML IV SCH ×3 (11:10→22:31)
[2017-07-03] MEDS: methylPREDNISolone SOD SUCC 40 MG/1 ML VIAL IV PUSH SCH ×2 (11:10→22:31)
[2017-07-03] MEDS: guaiFENesin E.R. 600 MG TAB PO SCH ×2 (11:10→20:52)
[2017-07-03] MEDS: LISINOPRIL 20 MG TAB PO SCH (11:11)
[2017-07-03] MEDS: ASPIRIN 81 MG CHEW TAB CHEW SCH (11:11)
[2017-07-03] MEDS: ATORVASTATIN 40 MG TAB PO SCH (11:11)
[2017-07-03] MEDS: METOPROLOL SUCCINATE 25 MG EXTENDED RELEASE TAB PO SCH (11:11)
[2017-07-03] MEDS: RIVAROXABAN 20 MG TAB PO SCH (11:11)
[2017-07-03] MEDS: TORSEMIDE 5 MG TAB PO SCH ×2 (11:31→20:51)
[2017-07-03 11:42] LABS: TROPONIN I LESS THAN 0.02 NG/ML (0.02-0.05)
[2017-07-03] MEDS: TIOTROPIUM BROMIDE 18 MCG INH INH SCH (12:10)
[2017-07-03] MEDS: RESP: ALBUTEROL 2.5 MG/IPRATROPIUM 0.5 MG NEB (SCH) INH ×2 (16:07→21:07)
[2017-07-03 16:29] LABS: TROPONIN I LESS THAN 0.02 NG/ML (0.02-0.05)
[2017-07-03] MEDS: FAMOTIDINE 20 MG TAB PO SCH (20:52)
[2017-07-03] MEDS: DOCUSATE SODIUM 50 MG/SENNA 8.6 MG TAB PO SCH (20:52)
[2017-07-03] MEDS ORDERED: SODIUM CHLORIDE 0.9% FLUSH 10 ML FLUSH IV FLUSH SCH ×2 (21:00)
[2017-07-04] VITALS (10 sets, daily range): BP systolic 109–148; BP diastolic 52–84; PULSE 100–124; RESP 17–20; TEMP 97–98.2; O2SAT 91–97
[2017-07-04] MEDS: RESP: ALBUTEROL 2.5 MG/IPRATROPIUM 0.5 MG NEB (SCH) INH ×4 (03:04→20:41)
[2017-07-04] MEDS: AZITHROMYCIN INJ 500 MG in SODIUM CHLOR 0.9% 250 ML INJ 250 ML IV SCH (06:01)
[2017-07-04] MEDS: SODIUM CHLOR 0.9% 1000 ML INJ 1,000 ML IV SCH ×2 (06:01→18:23)
[2017-07-04] MEDS: MAGNESIUM HYDROXIDE SUSP 30 ML CUP PO PRN ×2 (06:05→21:13)
--- NOTE | 2017-07-04 07:49 | HHI.PR ---
Subjective Remarks in no acute distress. sob improving. still with some on and off cough. no fever this morning; Tmax 100.9. overall doing better. Objective Vitals Vital Signs Date Time Temp Pulse Resp B/P (MAP) Pulse Ox O2 Delivery O2 Flow Rate FiO2 07/04/17 04:00 97.8 102 20 143/74 (97) 91 07/04/17 03:07 93 07/04/17 00:00 97.0 104 20 109/52 (71) 97 07/03/17 20:31 110 07/03/17 16:20 98.4 99 20 142/69 (93) 93 07/03/17 16:07 93 21 07/03/17 13:38 07/03/17 12:11 97.8 99 19 136/70 (92) 94 Room Air I/O 07/03/17 07/03/17 07/03/17 07/04/17 07/04/17 07/04/17 07:00 15:00 23:00 07:00 15:00 23:00 Intake Total 1000 ml 250 ml Balance 1000 ml 250 ml Intake IV Total 1000 ml 250 ml # Voids 4 Result Diagram: 07/03/1733607/03/17336 Imaging Last Impressions Chest X-Ray 07/03/17331 Signed Impressions: Service Date/Time: Monday, July 03, 2017 03:44 - CONCLUSION: 1. No acute cardiopulmonary disease. David Oneill MD Objective Remarks GENERAL: This is a well-nourished, well-developed patient, in no apparent distress. CARDIOVASCULAR: Regular rate and regular rhythm without murmurs, gallops, or rubs. RESPIRATORY: Clear to auscultation. Breath sounds equal bilaterally. No wheezes , rales, or rhonchi. GASTROINTESTINAL: Abdomen soft, non-tender, nondistended. Normal, active bowel sounds MUSCULOSKELETAL: Extremities without clubbing, cyanosis, or edema. NEURO: Alert & Oriented x4 to person, place, time, situation. Moves all ext x4 Procedures none Medications and IVs Inpatient Medications Acetaminophen (Tylenol) 650 mg Q6H PRN PO PAIN SCALE 1 TO 2; Start 07/03/17 at 10:15 Albuterol/ Ipratropium (Duoneb Neb) 1 ampule Q4HR NEB PRN INH SHORTNESS OF BREATH; Start 07/03/17 at 10:15 Aspirin (Aspirin Chew) 81 mg DAILY CHEW Last administered on 07/03/17at 11:11; Start 07/03/17 at 10:15 Atorvastatin Calcium (Lipitor) 40 mg DAILY PO Last administered on 07/03/17at 11 :11; Start 07/03/17 at 11:00 Azithromycin 500 mg/Sodium Chloride 250 ml @ 250 mls/hr Q24H IV Last administered on 07/04/17at 06:01; Start 07/04/17 at 07:00 Bisacodyl (Dulcolax Supp) 10 mg DAILY PRN RECTAL SEVERE CONSITIPATION; Start at 10:15 Ceftriaxone Sodium 1000 mg/ Sodium Chloride 100 ml @ 200 mls/hr Q24H IV ; Start 07/04/17 at 08:00 Famotidine (Pepcid) 20 mg BID PO Last administered on 07/03/17at 20:52; Start at 21:00 Guaifenesin (Mucinex Er) 600 mg BID PO Last administered on 07/03/17at 20:52; Start 07/03/17 at 10:45 Lactulose (Lactulose Liq) 30 ml DAILY PRN PO SEVERE CONSITIPATION; Start at 10:15 Lisinopril (Prinivil) 20 mg DAILY PO Last administered on 07/03/17at 11:11; Start 07/03/17 at 10:45 Magnesium Hydroxide (Milk Of Magnesia Liq) 30 ml Q12H PRN PO Mild constipation Last administered on 07/04/17at 06:05; Start 07/03/17 at 10:15 Methylprednisolone Sodium Succinate (SoluMEDROL INJ) 40 mg Q12H IV PUSH Last administered on 07/03/17at 22:31; Start 07/03/17 at 11:00 Metoclopramide HCl (Reglan Inj) 5 mg Q6H PRN IV PUSH NAUSEA OR VOMITING; Start 07/03/17 at 10:15 Metoprolol Succinate (Toprol Xl) 25 mg DAILY PO Last administered on 07/03/17at 11:11; Start 07/03/17 at 10:45 Morphine Sulfate (Morphine Inj) 4 mg Q3H PRN IV PUSH Pain 6-10;if unable to take PO; Start 07/03/17 at 10:30 Naloxone HCl (Narcan Inj) 0.4 mg UNSCH PRN IV PUSH SEE LABEL COMMENTS; Start at 10:15; Stop 07/03/17 at 10:20; Status DC Ondansetron HCl (Zofran Inj) 4 mg Q6H PRN IVP NAUSEA OR VOMITING; Start at 10:15; Stop 07/03/17 at 10:20; Status DC Oxycodone/ Acetaminophen (Percocet 5-325 Mg) 1 tab Q6H PRN PO PAIN SCALE 3 TO 5; Start 07/03/17 at 10:15 Oxycodone/ Acetaminophen (Percocet 10-325 Mg) 1 tab Q6H PRN PO PAIN SCALE 6 TO 10; Start 07/03/17 at 10:15 Rivaroxaban (Xarelto) 20 mg DAILY PO Last administered on 07/03/17at 11:11; Start 07/03/17 at 11:00 Senna/Docusate Sodium (Zarina-Colace) 1 tab BID PO Last administered on at 20:52; Start 07/03/17 at 21:00 Sennosides (Senokot) 17.2 mg Q12H PRN PO Moderate constipation; Start 07/03/17 at 10:15 Sodium Chloride (NS Flush) 2 ml BID IV FLUSH ; Start 07/03/17 at 21:00; Stop at 21:00; Status DC Tiotropium [place] (Spiriva Inh) 18 mcg DAILY INH Last administered on at 12:10; Start 07/03/17 at 11:00 Torsemide (Demadex) 10 mg BID PO Last administered on 07/03/17at 20:51; Start at 11:00 Zolpidem Tartrate (Ambien) 5 mg HS PRN PO INSOMNIA; Start 07/03/17 at 10:15 A/P Problem List: (1) JUAN (obstructive sleep apnea) ICD Code: G47.33 - JUAN (obstructive sleep apnea) Status: Chronic (2) HTN (hypertension) ICD Code: I10 - Hypertension Status: Chronic (3) Pneumonia ICD Code: J18.9 - Pneumonia, unspecified organism Status: Acute (4) SOB (shortness of breath) ICD Code: R06.02 - Shortness of breath Status: Acute (5) Atrial fibrillation ICD Code: I48.91 - Atrial fibrillation Status: Chronic (6) COPD exacerbation ICD Code: J44.1 - Obstructive chronic bronchitis with exacerbation Status: Acute (7) Acute bronchitis ICD Code: J20.9 - Acute bronchitis, unspecified Status: Acute Assessment and Plan COPD exacerbation. And bronchitis will continue on Zithromax and Rocephin. Continue with Solu-Medrol. Continue with Mucinex continue duo nebs continue with incentive spirometry Continue on oxygen as needed. follow the blood cultures. clinically improving. Atrial fibrillation continue on home medications continue on Xarelto as at home Hyperlipidemia continue on her home medications Hypertension continue on home medications Incentive spirometry DVT prophylaxis with Xarelto Discharge Planning dc home tomorrow if continues to improve. Problem Qualifiers (1) Acute bronchitis: Qualified Codes: J20.8 - Acute bronchitis due to other specified organisms Aramis Reddy MD Jul 04, 2017 07:49
[2017-07-04] MEDS ORDERED: CEFU1TAB18 PO ×2 (07:52→07:55)
[2017-07-04] MEDS ORDERED: ZITH250T PO (07:52)
[2017-07-04] MEDS ORDERED: PRED5TAB PO (07:52)
[2017-07-04] MEDS: SODIUM CHLORIDE 0.9% FLUSH 10 ML FLUSH IV FLUSH SCH ×2 (07:56→21:10)
[2017-07-04] MEDS: cefTRIAXone INJ 1,000 MG in SODIUM CHLORIDE 0.9% INJ 100 ML IV SCH (07:56)
[2017-07-04] MEDS: guaiFENesin E.R. 600 MG TAB PO SCH ×2 (08:00→21:10)
[2017-07-04] MEDS: METOPROLOL SUCCINATE 25 MG EXTENDED RELEASE TAB PO SCH (08:01)
[2017-07-04] MEDS: LISINOPRIL 20 MG TAB PO SCH (08:01)
[2017-07-04] MEDS: DOCUSATE SODIUM 50 MG/SENNA 8.6 MG TAB PO SCH ×2 (08:02→21:10)
[2017-07-04] MEDS: ATORVASTATIN 40 MG TAB PO SCH (08:03)
[2017-07-04] MEDS: TORSEMIDE 5 MG TAB PO SCH ×2 (08:03→21:09)
[2017-07-04] MEDS: FAMOTIDINE 20 MG TAB PO SCH ×2 (08:04→21:10)
[2017-07-04] MEDS: ASPIRIN 81 MG CHEW TAB CHEW SCH (08:04)
[2017-07-04] MEDS: RIVAROXABAN 20 MG TAB PO SCH (08:17)
[2017-07-04 08:20] LABS: AUTOMATED NEUTROPHIL # 10.1 TH/MM3 (1.8-7.7); BASOPHIL % 0.1 % (0.0-2.0); HEMATOCRIT 41.4 % (39.0-51.0); HEMOGLOBIN 13.9 GM/DL (13.0-17.0); LYMPH % 7.2 % (9.0-44.0); LYMPHOCYTE # 0.8 TH/MM3 (1.0-4.8); MEAN CELL VOLUME 92.3 FL (80.0-100.0); MEAN CORPUSCULAR HGB CONC 33.6 % (32.0-36.0); MEAN PLATELET VOLUME 9.5 FL (7.0-11.0); MONO % 6.6 % (0.0-8.0); MONOCYTE # 0.8 TH/MM3 (0-0.9); NEUT % 86.1 % (16.0-70.0); PLATELET COUNT 184 TH/MM3 (150-450); RED BLOOD COUNT 4.48 MIL/MM3 (4.50-5.90); RED CELL DISTRIBUTION WIDTH 14.2 % (11.6-17.2); WHITE BLOOD COUNT 11.8 TH/MM3 (4.0-11.0)
[2017-07-04 08:55] LABS: ALBUMIN 3.5 GM/DL (3.4-5.0); ALKALINE PHOSPHATASE 58 U/L (45-117); ALT (GPT) 18 U/L (12-78); AST (GOT) 16 U/L (15-37); BICARBONATE 25.4 MEQ/L (21.0-32.0); BLOOD UREA NITROGEN 32 MG/DL (7-18); CALCIUM 8.7 MG/DL (8.5-10.1); CHLORIDE 105 MEQ/L (98-107); CREATININE 1.46 MG/DL (0.60-1.30); GLOMERULAR FILTRATION RATE 46 ML/MIN (>89); GLUCOSE,RANDOM 151 MG/DL (74-106); MAGNESIUM 2.2 MG/DL (1.5-2.5); PHOSPHORUS 4.3 MG/DL (2.5-4.9); SODIUM (NA) 139 MEQ/L (136-145); TOTAL BILIRUBIN ADULT 0.5 MG/DL (0.2-1.0); TOTAL PROTEIN 7.1 GM/DL (6.4-8.2)
--- NOTE | 2017-07-04 09:22 | EKG ---
Date Performed: 07/03/2017 Time Performed: 07:28:34 PTAGE: 81 years EKG: SINUS TACHYCARDIA WITH FIRST DEGREE AV BLOCK ST SEGMENT ELEVATION IS NOTED IN LEADS V3-V6, THIS IS NEW COMPARED TO THE PRIOR STUDY. CLINICAL CORRELATION IS RECOMMENDED. ABNORMAL ECG PREVIOUS TRACING 12/17/2016 21.02.33 DOCTOR: Shaji Kumar Interpretating Date/Time 07/04/2017 09:21:40
[2017-07-04] MEDS: TIOTROPIUM BROMIDE 18 MCG INH INH SCH (10:42)
[2017-07-04] MEDS: methylPREDNISolone SOD SUCC 40 MG/1 ML VIAL IV PUSH SCH ×2 (10:43→23:08)
[2017-07-04 10:56] LABS: HEMOGLOBIN A1C 6.5 % (4.3-6.0)
[2017-07-05] VITALS (11 sets, daily range): BP systolic 128–156; BP diastolic 67–78; PULSE 76–111; RESP 16–17; TEMP 97–98.4; O2SAT 93–96
[2017-07-05] MEDS: RESP: ALBUTEROL 2.5 MG/IPRATROPIUM 0.5 MG NEB (SCH) INH ×4 (02:13→21:31)
[2017-07-05] MEDS: AZITHROMYCIN INJ 500 MG in SODIUM CHLOR 0.9% 250 ML INJ 250 ML IV SCH (06:14)
[2017-07-05] MEDS: SODIUM CHLOR 0.9% 1000 ML INJ 1,000 ML IV SCH ×2 (06:14→16:33)
[2017-07-05] MEDS ORDERED: BENZONATATE 100 MG CAP PO PRN (08:00)
--- NOTE | 2017-07-05 08:00 | HHI.PR ---
Subjective Remarks in no acute distress. sob is better but he says that ' he's not feeling well enough to go home today'. still with some cough. no fever. complaining of constipation. Objective Vitals Vital Signs Date Time Temp Pulse Resp B/P (MAP) Pulse Ox O2 Delivery O2 Flow Rate FiO2 07/05/17 05:00 97.8 76 16 128/68 (88) 96 07/05/17 00:30 97.0 89 17 138/68 (91) 95 07/04/17 21:15 98.2 100 17 144/68 (93) 95 07/04/17 20:44 93 07/04/17 16:47 97.4 107 20 117/74 (88) 94 07/04/17 15:19 124 07/04/17 12:21 98.1 113 20 116/84 (95) 94 07/04/17 09:15 92 21 07/04/17 08:25 97.7 105 18 148/77 (100) 92 I/O 07/04/17 07/04/17 07/04/17 07/05/17 07/05/17 07/05/17 07:00 15:00 23:00 07:00 15:00 23:00 Intake Total 250 ml 1940 ml 550 ml Balance 250 ml 1940 ml 550 ml Intake Oral 1940 ml 450 ml IV Total 250 ml 100 ml # Voids 4 5 2 # Bowel Movements 0 0 Result Diagram: 07/04/17 0720 07/04/17 0720 Imaging Last Impressions Chest X-Ray 07/03/17 0332 Signed Impressions: Service Date/Time: Monday, July 03, 2017 03:44 - CONCLUSION: 1. No acute cardiopulmonary disease. David Oneill MD Objective Remarks GENERAL: This is a well-nourished, well-developed patient, in no apparent distress. CARDIOVASCULAR: Regular rate and regular rhythm without murmurs, gallops, or rubs. RESPIRATORY: Clear to auscultation. Breath sounds equal bilaterally. No wheezes , rales, or rhonchi. GASTROINTESTINAL: Abdomen soft, non-tender, nondistended. Normal, active bowel sounds MUSCULOSKELETAL: Extremities without clubbing, cyanosis, or edema. NEURO: Alert & Oriented x4 to person, place, time, situation. Moves all ext x4 Procedures none Medications and IVs Inpatient Medications Acetaminophen (Tylenol) 650 mg Q6H PRN PO PAIN SCALE 1 TO 2; Start 07/03/17 at 10:15 Albuterol/ Ipratropium (Duoneb Neb) 1 ampule Q4HR NEB PRN INH SHORTNESS OF BREATH; Start 07/03/17 at 10:15 Aspirin (Aspirin Chew) 81 mg DAILY CHEW Last administered on 07/04/17at 08:04; Start 07/03/17 at 10:15 Atorvastatin Calcium (Lipitor) 40 mg DAILY PO Last administered on 07/04/17at 08: 03; Start 07/03/17 at 11:00 Azithromycin 500 mg/Sodium Chloride 250 ml @ 250 mls/hr Q24H IV Last administered on 07/05/17at 06:14; Start 07/04/17 at 07:00 Bisacodyl (Dulcolax Supp) 10 mg DAILY PRN RECTAL SEVERE CONSITIPATION; Start at 10:15 Ceftriaxone Sodium 1000 mg/ Sodium Chloride 100 ml @ 200 mls/hr Q24H IV Last administered on 07/04/17at 07:56; Start 07/04/17 at 08:00 Famotidine (Pepcid) 20 mg BID PO Last administered on 07/04/17at 21:10; Start at 21:00 Guaifenesin (Mucinex Er) 600 mg BID PO Last administered on 07/04/17at 21:10; Start 07/03/17 at 10:45 Lactulose (Lactulose Liq) 30 ml DAILY PRN PO SEVERE CONSITIPATION; Start at 10:15 Lisinopril (Prinivil) 20 mg DAILY PO Last administered on 07/04/17at 08:01; Start 07/03/17 at 10:45 Magnesium Hydroxide (Milk Of Magnesia Liq) 30 ml Q12H PRN PO Mild constipation Last administered on 07/04/17at 21:13; Start 07/03/17 at 10:15 Methylprednisolone Sodium Succinate (SoluMEDROL INJ) 40 mg Q12H IV PUSH Last administered on 07/04/17at 23:08; Start 07/03/17 at 11:00 Metoclopramide HCl (Reglan Inj) 5 mg Q6H PRN IV PUSH NAUSEA OR VOMITING; Start 07/03/17 at 10:15 Metoprolol Succinate (Toprol Xl) 25 mg DAILY PO Last administered on 07/04/17at 08:01; Start 07/03/17 at 10:45 Morphine Sulfate (Morphine Inj) 4 mg Q3H PRN IV PUSH Pain 6-10;if unable to take PO; Start 07/03/17 at 10:30 Naloxone HCl (Narcan Inj) 0.4 mg UNSCH PRN IV PUSH SEE LABEL COMMENTS; Start at 10:15; Stop 07/03/17 at 10:20; Status DC Ondansetron HCl (Zofran Inj) 4 mg Q6H PRN IVP NAUSEA OR VOMITING; Start at 10:15; Stop 07/03/17 at 10:20; Status DC Oxycodone/ Acetaminophen (Percocet 5-325 Mg) 1 tab Q6H PRN PO PAIN SCALE 3 TO 5; Start 07/03/17 at 10:15 Oxycodone/ Acetaminophen (Percocet 10-325 Mg) 1 tab Q6H PRN PO PAIN SCALE 6 TO 10; Start 07/03/17 at 10:15 Rivaroxaban (Xarelto) 20 mg DAILY PO Last administered on 07/04/17at 08:17; Start 07/03/17 at 11:00 Senna/Docusate Sodium (Zarina-Colace) 1 tab BID PO Last administered on 07/04/17at 21:10; Start 07/03/17 at 21:00 Sennosides (Senokot) 17.2 mg Q12H PRN PO Moderate constipation; Start 07/03/17 at 10:15 Sodium Chloride (NS Flush) 2 ml BID IV FLUSH ; Start 07/03/17 at 21:00; Stop at 21:00; Status DC Tiotropium [place] (Spiriva Inh) 18 mcg DAILY INH Last administered on at 10:42; Start 07/03/17 at 11:00 Torsemide (Demadex) 10 mg BID PO Last administered on 07/04/17at 21:09; Start at 11:00 Zolpidem Tartrate (Ambien) 5 mg HS PRN PO INSOMNIA; Start 07/03/17 at 10:15 A/P Problem List: (1) JUAN (obstructive sleep apnea) ICD Code: G47.33 - JUAN (obstructive sleep apnea) Status: Chronic (2) HTN (hypertension) ICD Code: I10 - Hypertension Status: Chronic (3) Pneumonia ICD Code: J18.9 - Pneumonia, unspecified organism Status: Acute (4) SOB (shortness of breath) ICD Code: R06.02 - Shortness of breath Status: Acute (5) Atrial fibrillation ICD Code: I48.91 - Atrial fibrillation Status: Chronic (6) COPD exacerbation ICD Code: J44.1 - Obstructive chronic bronchitis with exacerbation Status: Acute (7) Acute bronchitis ICD Code: J20.9 - Acute bronchitis, unspecified Status: Acute Assessment and Plan A/P COPD exacerbation. improving. continue on Zithromax and Rocephin. Continue with Solu-Medrol; will start to taper down. continue duo nebs continue with incentive spirometry Continue on oxygen as needed. blood cultures negative so far. Atrial fibrillation continue on home medications continue on Xarelto as at home. Hyperlipidemia continue on her home medications Hypertension continue on home medications Incentive spirometry constipation; laxatives as needed. DVT prophylaxis with Xarelto Discharge Planning will monitor for one more day. dc home tomorrow if stable. Problem Qualifiers (1) Acute bronchitis: Qualified Codes: J20.8 - Acute bronchitis due to other specified organisms Aramis Reddy MD Jul 05, 2017 08:00
[2017-07-05] MEDS: cefTRIAXone INJ 1,000 MG in SODIUM CHLORIDE 0.9% INJ 100 ML IV SCH (08:10)
[2017-07-05] MEDS: LISINOPRIL 20 MG TAB PO SCH (08:15)
[2017-07-05] MEDS: RIVAROXABAN 20 MG TAB PO SCH (08:16)
[2017-07-05] MEDS: TIOTROPIUM BROMIDE 18 MCG INH INH SCH (08:17)
[2017-07-05] MEDS: ASPIRIN 81 MG CHEW TAB CHEW SCH (08:17)
[2017-07-05] MEDS: SODIUM CHLORIDE 0.9% FLUSH 10 ML FLUSH IV FLUSH SCH ×2 (08:17→20:01)
[2017-07-05] MEDS: TORSEMIDE 5 MG TAB PO SCH ×2 (08:18→20:00)
[2017-07-05] MEDS: DOCUSATE SODIUM 50 MG/SENNA 8.6 MG TAB PO SCH ×2 (08:19→20:00)
[2017-07-05] MEDS: FAMOTIDINE 20 MG TAB PO SCH ×2 (08:19→20:00)
[2017-07-05] MEDS: ATORVASTATIN 40 MG TAB PO SCH (08:19)
[2017-07-05] MEDS: METOPROLOL SUCCINATE 25 MG EXTENDED RELEASE TAB PO SCH (08:24)
[2017-07-05 09:03] LABS: BICARBONATE 27.2 MEQ/L (21.0-32.0); CALCIUM 8.6 MG/DL (8.5-10.1); CREATININE 1.42 MG/DL (0.60-1.30)
[2017-07-05] MEDS: methylPREDNISolone SOD SUCC 40 MG/1 ML VIAL IV PUSH SCH ×2 (10:48→23:03)
[2017-07-06 00:30] VITALS: BP 150/64; PULSE 88; RESP 19; TEMP 97.7; O2SAT 94
[2017-07-06] MEDS: RESP: ALBUTEROL 2.5 MG/IPRATROPIUM 0.5 MG NEB (SCH) INH ×2 (03:44→09:36)
[2017-07-06 04:00] VITALS: PULSE 106
[2017-07-06 04:40] VITALS: BP 148/68; PULSE 89; RESP 19; TEMP 98.6; O2SAT 95
[2017-07-06] MEDS: AZITHROMYCIN INJ 500 MG in SODIUM CHLOR 0.9% 250 ML INJ 250 ML IV SCH (06:15)
[2017-07-06] MEDS: SODIUM CHLOR 0.9% 1000 ML INJ 1,000 ML IV SCH (06:15)
--- NOTE | 2017-07-06 07:54 | HHI.PR ---
Subjective Remarks in no acute distress. walking in the room. off-oxygen and overall doing fine. no new complaints. had a BM this morning. wants to go home today. Objective Vitals Vital Signs Date Time Temp Pulse Resp B/P (MAP) Pulse Ox O2 Delivery O2 Flow Rate FiO2 07/06/17 04:40 98.6 89 19 148/68 (94) 95 07/06/17 04:00 106 07/06/17 00:30 97.7 88 19 150/64 (92) 94 07/05/17 21:45 98.3 108 17 156/67 (96) 94 07/05/17 21:32 93 07/05/17 20:00 105 07/05/17 18:23 109 07/05/17 16:15 98.4 111 16 154/75 (101) 94 07/05/17 12:13 98.2 110 17 148/70 (96) 93 07/05/17 10:51 95 21 07/05/17 09:38 111 07/05/17 08:03 97.5 107 17 134/78 (96) 94 I/O 07/05/17 07/05/17 07/05/17 07/06/17 07/06/17 07/06/17 07:00 15:00 23:00 07:00 15:00 23:00 Intake Total 550 ml 650 ml 1910 ml Balance 550 ml 650 ml 1910 ml Intake Oral 450 ml 650 ml 910 ml IV Total 100 ml 1000 ml # Voids 2 9 5 # Bowel Movements 0 1 0 Result Diagram: 07/04/17 0720 07/05/17 0620 Imaging Last Impressions Chest X-Ray 07/03/17 0332 Signed Impressions: Service Date/Time: Monday, July 03, 2017 03:44 - CONCLUSION: 1. No acute cardiopulmonary disease. David Oneill MD Objective Remarks GENERAL: This is a well-nourished, well-developed patient, in no apparent distress. CARDIOVASCULAR: Regular rate and regular rhythm without murmurs, gallops, or rubs. RESPIRATORY: Clear to auscultation. Breath sounds equal bilaterally. No wheezes , rales, or rhonchi. GASTROINTESTINAL: Abdomen soft, non-tender, nondistended. Normal, active bowel sounds MUSCULOSKELETAL: Extremities without clubbing, cyanosis, or edema. NEURO: Alert & Oriented x4 to person, place, time, situation. Moves all ext x4 Procedures none Medications and IVs Inpatient Medications Acetaminophen (Tylenol) 650 mg Q6H PRN PO PAIN SCALE 1 TO 2; Start 07/03/17 at 10:15 Albuterol/ Ipratropium (Duoneb Neb) 1 ampule Q4HR NEB PRN INH SHORTNESS OF BREATH; Start 07/03/17 at 10:15 Aspirin (Aspirin Chew) 81 mg DAILY CHEW Last administered on 07/05/17at 08:17; Start 07/03/17 at 10:15 Atorvastatin Calcium (Lipitor) 40 mg DAILY PO Last administered on 07/05/17at 08: 19; Start 07/03/17 at 11:00 Azithromycin 500 mg/Sodium Chloride 250 ml @ 250 mls/hr Q24H IV Last administered on 07/06/17at 06:15; Start 07/04/17 at 07:00 Benzonatate (Tessalon) 100 mg TID PRN PO COUGH; Start 07/05/17 at 08:00 Bisacodyl (Dulcolax Supp) 10 mg DAILY PRN RECTAL SEVERE CONSITIPATION; Start at 10:15 Ceftriaxone Sodium 1000 mg/ Sodium Chloride 100 ml @ 200 mls/hr Q24H IV Last administered on 07/05/17at 08:10; Start 07/04/17 at 08:00 Famotidine (Pepcid) 20 mg BID PO Last administered on 07/05/17at 20:00; Start at 21:00 Guaifenesin (Mucinex Er) 600 mg BID PO Last administered on 07/04/17at 21:10; Start 07/03/17 at 10:45; Stop 07/05/17 at 08:01; Status DC Lactulose (Lactulose Liq) 30 ml DAILY PRN PO SEVERE CONSITIPATION; Start at 10:15 Lisinopril (Prinivil) 20 mg DAILY PO Last administered on 07/05/17at 08:15; Start 07/03/17 at 10:45 Magnesium Hydroxide (Milk Of Magnesia Liq) 30 ml Q12H PRN PO Mild constipation Last administered on 07/04/17at 21:13; Start 07/03/17 at 10:15 Methylprednisolone Sodium Succinate (SoluMEDROL INJ) 20 mg Q12H IV PUSH Last administered on 07/05/17at 23:03; Start 07/05/17 at 11:00 Metoclopramide HCl (Reglan Inj) 5 mg Q6H PRN IV PUSH NAUSEA OR VOMITING; Start 07/03/17 at 10:15 Metoprolol Succinate (Toprol Xl) 25 mg DAILY PO Last administered on 07/05/17at 08:24; Start 07/03/17 at 10:45 Morphine Sulfate (Morphine Inj) 4 mg Q3H PRN IV PUSH Pain 6-10;if unable to take PO; Start 07/03/17 at 10:30 Naloxone HCl (Narcan Inj) 0.4 mg UNSCH PRN IV PUSH SEE LABEL COMMENTS; Start at 10:15; Stop 07/03/17 at 10:20; Status DC Ondansetron HCl (Zofran Inj) 4 mg Q6H PRN IVP NAUSEA OR VOMITING; Start at 10:15; Stop 07/03/17 at 10:20; Status DC Oxycodone/ Acetaminophen (Percocet 5-325 Mg) 1 tab Q6H PRN PO PAIN SCALE 3 TO 5; Start 07/03/17 at 10:15 Oxycodone/ Acetaminophen (Percocet 10-325 Mg) 1 tab Q6H PRN PO PAIN SCALE 6 TO 10; Start 07/03/17 at 10:15 Rivaroxaban (Xarelto) 20 mg DAILY PO Last administered on 07/05/17at 08:16; Start 07/03/17 at 11:00 Senna/Docusate Sodium (Zarina-Colace) 1 tab BID PO Last administered on 07/05/17at 20:00; Start 07/03/17 at 21:00 Sennosides (Senokot) 17.2 mg Q12H PRN PO Moderate constipation; Start 07/03/17 at 10:15 Sodium Chloride (NS Flush) 2 ml BID IV FLUSH ; Start 07/03/17 at 21:00; Stop at 21:00; Status DC Tiotropium [place] (Spiriva Inh) 18 mcg DAILY INH Last administered on at 08:17; Start 07/03/17 at 11:00 Torsemide (Demadex) 10 mg BID PO Last administered on 07/05/17at 20:00; Start at 11:00 Zolpidem Tartrate (Ambien) 5 mg HS PRN PO INSOMNIA; Start 07/03/17 at 10:15 A/P Problem List: (1) JUAN (obstructive sleep apnea) ICD Code: G47.33 - JUAN (obstructive sleep apnea) Status: Chronic (2) HTN (hypertension) ICD Code: I10 - Hypertension Status: Chronic (3) Pneumonia ICD Code: J18.9 - Pneumonia, unspecified organism Status: Acute (4) SOB (shortness of breath) ICD Code: R06.02 - Shortness of breath Status: Acute (5) Atrial fibrillation ICD Code: I48.91 - Atrial fibrillation Status: Chronic (6) COPD exacerbation ICD Code: J44.1 - Obstructive chronic bronchitis with exacerbation Status: Acute (7) Acute bronchitis ICD Code: J20.9 - Acute bronchitis, unspecified Status: Acute Assessment and Plan A/P COPD exacerbation. improving. will switch to po prednisone and antibiotics upon discharge. blood cultures negative so far. Atrial fibrillation continue on home medications continue on Xarelto as at home. Hyperlipidemia continue on her home medications Hypertension continue on home medications Incentive spirometry constipation; laxatives as needed. renal insufficiency- likely chronic- f/u as outpatient. DVT prophylaxis with Xarelto Discharge Planning dc home today. see med list. f/u; pcp. d/w the patient and RN. Problem Qualifiers (1) Acute bronchitis: Qualified Codes: J20.8 - Acute bronchitis due to other specified organisms Aramis Reddy MD Jul 06, 2017 07:54
--- NOTE | 2017-07-06 07:55 | HHI.DS ---
Discharge Summary Admission Date Jul 03, 2017 at 10:09 Discharge Date: Jul 06, 2017 Admitting Diagnosis RESP DISTRESS (1) JUAN (obstructive sleep apnea) ICD Code: G47.33 - JUAN (obstructive sleep apnea) Diagnosis: Principal Status: Chronic (2) HTN (hypertension) ICD Code: I10 - Hypertension Diagnosis: Secondary Status: Chronic (3) SOB (shortness of breath) ICD Code: R06.02 - Shortness of breath Diagnosis: Principal Status: Acute (4) Atrial fibrillation ICD Code: I48.91 - Atrial fibrillation Status: Chronic (5) COPD exacerbation ICD Code: J44.1 - Obstructive chronic bronchitis with exacerbation Diagnosis: Principal Status: Acute (6) Acute bronchitis ICD Code: J20.9 - Acute bronchitis, unspecified Diagnosis: Principal Status: Acute Procedures none Brief History - From Admission Patient is a 81-year-old male. He presented with increasing shortness of breath. Patient has a history of COPD and atrial fibrillation. Cane and with increasing cough and shortness of breath and fevers early this morning. Patient was brought in by EMS. Received DuoNeb 1 as well as albuterol nebulizers 2 as well as Solu-Medrol 125 mg IV by EMS prior to coming to the hospital. Patient was noted to have an oxygen saturation in the mid to high 80s was very shortness of breath and dyspneic has had some improvement. Has had some wheezing and coughing was found to have pneumonia/bronchitis and COPD exacerbation and will be admitted for IV antibiotics and IV steroids DuoNeb 's incentive spirometry and Mucinex CBC/BMP: 07/04/17 0720 07/05/17 0620 Significant Findings Laboratory Tests Test 07/03/17 10:53 07/03/17 15:14 07/04/17 07:20 07/05/17 06:20 Troponin I LESS THAN 0.02 NG/ML LESS THAN 0.02 NG/ML White Blood Count 11.8 TH/MM3 (4.0-11.0) Red Blood Count 4.48 MIL/MM3 (4.50-5.90) Neutrophils (%) (Auto) 86.1 % (16.0-70.0) Lymphocytes (%) (Auto) 7.2 % (9.0-44.0) Neutrophils # (Auto) 10.1 TH/MM3 (1.8-7.7) Lymphocytes # (Auto) 0.8 TH/MM3 (1.0-4.8) Blood Urea Nitrogen 32 MG/DL (7-18) 44 MG/DL (7-18) Creatinine 1.46 MG/DL (0.60-1.30) 1.42 MG/DL (0.60-1.30) Random Glucose 151 MG/DL (74-106) 148 MG/DL (74-106) Estimat Glomerular Filtration Rate 46 ML/MIN (>89) 48 ML/MIN (>89) Hemoglobin A1c 6.5 % (4.3-6.0) Imaging Last Impressions Chest X-Ray 07/03/17 0332 Signed Impressions: Service Date/Time: Monday, July 03, 2017 03:44 - CONCLUSION: 1. No acute cardiopulmonary disease. David Oneill MD PE at Discharge GENERAL: This is a well-nourished, well-developed patient, in no apparent distress. CARDIOVASCULAR: Regular rate and regular rhythm without murmurs, gallops, or rubs. RESPIRATORY: Clear to auscultation. Breath sounds equal bilaterally. No wheezes , rales, or rhonchi. GASTROINTESTINAL: Abdomen soft, non-tender, nondistended. Normal, active bowel sounds MUSCULOSKELETAL: Extremities without clubbing, cyanosis, or edema. NEURO: Alert & Oriented x4 to person, place, time, situation. Moves all ext x4 Hospital Course COPD exacerbation. improving. will switch to po prednisone and antibiotics upon discharge. blood cultures negative so far. Atrial fibrillation continue on home medications continue on Xarelto as at home. Hyperlipidemia continue on her home medications Hypertension continue on home medications Incentive spirometry renal insufficiency- likely chronic- f/u as outpatient. Pt Condition on Discharge: Fair Discharge Disposition: Discharge Home Discharge Time: <= 30 minutes Discharge Instructions DIET: Follow Instructions for: Heart Healthy Diet Activities you can perform: Regular-No Restrictions Aramis Reddy MD Jul 06, 2017 07:55
[2017-07-06 08:35] VITALS: BP 148/91; PULSE 108; RESP 20; TEMP 97.7; O2SAT 96
[2017-07-06] MEDS: cefTRIAXone INJ 1,000 MG in SODIUM CHLORIDE 0.9% INJ 100 ML IV SCH (08:42)
[2017-07-06] MEDS: TIOTROPIUM BROMIDE 18 MCG INH INH SCH (08:45)
[2017-07-06] MEDS: SODIUM CHLORIDE 0.9% FLUSH 10 ML FLUSH IV FLUSH SCH (08:46)
[2017-07-06] MEDS: TORSEMIDE 5 MG TAB PO SCH (08:47)
[2017-07-06] MEDS: ATORVASTATIN 40 MG TAB PO SCH (08:47)
[2017-07-06] MEDS: FAMOTIDINE 20 MG TAB PO SCH (08:48)
[2017-07-06] MEDS: ASPIRIN 81 MG CHEW TAB CHEW SCH (08:48)
[2017-07-06] MEDS: LISINOPRIL 20 MG TAB PO SCH (08:48)
[2017-07-06] MEDS: RIVAROXABAN 20 MG TAB PO SCH (08:48)
[2017-07-06] MEDS: DOCUSATE SODIUM 50 MG/SENNA 8.6 MG TAB PO SCH (08:49)
[2017-07-06] MEDS: METOPROLOL SUCCINATE 25 MG EXTENDED RELEASE TAB PO SCH (08:51)
[2017-07-06 09:37] VITALS: O2SAT 94
== END 2017-07-06 11:20 | disposition home or self-care (01) | DRG 190 ==
LOC: NEPE 03:29 → NEDA 08:03 → OBSVTOIN 10:09 → N05A 13:17
PROVIDERS: ADMIT Internal Medicine; ATTEND Internal Medicine
DX: J44.1 Chronic obstructive pulmonary disease with (acute) exacerbation (principal); J18.9 Pneumonia, unspecified organism; J44.0 Chronic obstructive pulmonary disease with (acute) lower respiratory infection; I48.91 Unspecified atrial fibrillation; J20.8 Acute bronchitis due to other specified organisms; I10 Essential (primary) hypertension; E78.00 Pure hypercholesterolemia, unspecified; G47.33 Obstructive sleep apnea (adult) (pediatric); M54.9 Dorsalgia, unspecified; G89.29 Other chronic pain; N28.9 Disorder of kidney and ureter, unspecified; K59.00 Constipation, unspecified; I25.10 Atherosclerotic heart disease of native coronary artery without angina pectoris; I25.2 Old myocardial infarction; Z79.01 Long term (current) use of anticoagulants
CPT/HCPCS: 71045; 80048; 80053; 81001; 82550; 82948; 83036; 83605; 83735; 84100; 84439; 84443; 84484; 85025; 87040; 87070; 87205; 87804; 93005; 94150; 94640; 94664; 96365; J0456; J0696; J2920; J7030; J7050